=== PATIENT | male | born 1940 | race Asian ===

== ENCOUNTER → 2019-12-07 09:02 | Outpatient (CLI) | payer MEDICARE, OTHER, SELFPAY ==
--- NOTE | 2019-12-07 | DI.ECHO.S_ITS ---
[facility] [facility] +---------+ [facility] +---------+ : : [address] : : : : [place] : : : : [id number] : : : : Phone: [phone]+ Echocardiogram Report + + :Name: NITA BHAKTA Study Date: 12/07/2019 Height: 68 in : :[facility] Weight: 170 lb : : Gender: Male BSA: 1.9 m2 : :: 1940 Age: 79 yrs BP: 144/82 mmHg: :Reason For Study: ABN ECG : :Ordering Physician: Lawrence : :Isidro Garcia Performed By: Omar Harmon : :Referring: LAWRENCE GARCIA : + + Interpretation Summary The left ventricle is normal in size. The ejection fraction is estimated to be 65-70%. The right ventricle is normal in size and function. There is mild mitral regurgitation. Compared to the prior echo study, there has been an increase in the severity of mitral regurgitation. The IVC is of normal diameter and collapses greater than 50% with a sniff. This suggests a low right atrial pressure of 3 mm Hg. Procedure: A two-dimensional transthoracic echocardiogram with color flow and Doppler was performed. The study quality was technically adequate. Prior echo performed on 12/29/11. The patient was in normal sinus rhythm during the exam. Left Ventricle: The left ventricle is normal in size. There is mild concentric left ventricular hypertrophy. A false chord is noted (normal variant). There is no thrombus. Left ventricular systolic function is normal. The ejection fraction is estimated to be 65-70%. There are no focal wall motion abnormalities. Diastolic parameters suggest a relaxation abnormality of the left ventricle, consistent with probable normal filling pressures. Right Ventricle: The right ventricle is normal in size and function. Atria: The left atrium is moderately dilated. The left atrium has mildly increased in size since the prior echo exam. Right atrial size is normal. The interatrial septum is intact with no evidence for an atrial septal defect. Mitral Valve: The mitral valve leaflets appear mildly thickened, but open well. There is mild mitral annular calcification. There is systolic anterior motion of the chordal apparatus. Redundant elongated chordae are noted. There is mild mitral regurgitation. Compared to the prior echo study, there has been an increase in the severity of mitral regurgitation. Aortic Valve: The aortic valve is trileaflet. The aortic valve opens well. There is mild aortic valve sclerosis. There is no aortic valve stenosis. No aortic regurgitation is present. Tricuspid Valve: The tricuspid valve is normal in structure and function. There is trace tricuspid regurgitation. Pulmonary artery pressures cannot be estimated because of the lack of a measurable TR jet velocity. Pulmonic Valve: The pulmonic valve is not well seen, but is grossly normal. There is trace pulmonic regurgitation. Great Vessels: The aortic root is normal size. The dimensions of the ascending aorta are normal. The aortic arch could not be visualized. The pulmonary artery is normal size. The IVC is of normal diameter and collapses greater than 50% with a sniff. This suggests a low right atrial pressure of 3 mm Hg. Pericardium/ Pleura There is no pericardial effusion. There is no pleural effusion. MMode/2D Measurements & Calculations LVIDd: 5.0 cm LVOT diam: 2.1 cm LVIDs: 3.2 cm Ao root diam: 3.5 cm FS: 35.2 % Aortic Jxn: 3.0 cm EPSS: 0.53 cm asc Aorta Diam: 3.3 cm IVSd: 1.3 cm LVPWd: 1.2 cm LV negron. diameter/BSA (cm/m^2): 2.6 LV sys. diameter/BSA (cm/m^2): 1.7 LA A2 area: 23.5 cm2 RA long axis: 4.7 cm LA A4 area: 20.9 cm2 RA area: 12.0 cm2 LA length (vol): 5.1 cm RA vol: 26.2 ml LA vol: 81.0 ml RA : 13.7 ml/m2 LA vol index: 42.5 ml/m2 TAPSE: 2.7 cm Doppler Measurements & Calculations Ao V2 max: 129.9 cm/sec LVOT Max Adrián: 107.0 cm/sec Ao V2 mean: 82.4 cm/sec LV V1 max P.6 mmHg Ao max P.8 mmHg LV V1 VTI: 23.3 cm Ao mean P.3 mmHg LAUREN(I,D): 2.9 cm2 Ao V2 VTI: 26.5 cm LAUREN(V,D): 2.7 cm2 sev ratio: 0.88 LAUREN indexed to BSA (cm^2/m^2): 1.5 MV E max adrián: 66.2 cm/sec PA V2 max: 75.7 cm/sec MV A max adrián: 105.8 cm/sec PA V2 mean: 53.1 cm/sec MV E/A: 0.63 PA mean P.3 mmHg Med Peak E' Adrián: 4.4 cm/sec PA Accel Time: 0.06 sec E/E' med: 14.9 Lat Peak E' Adrián: 5.9 cm/sec E/E' lat: 11.3 E/e' average: 13.1 MV dec time: 0.19 sec SV(OT): 77.8 ml Reading Physician:04:52 PM
== END ==
PROVIDERS: PCP Family Medicine; Visit Provider Internal Medicine Cardiovascular Disease
DX: I08.0 Rheumatic disorders of both mitral and aortic valves (principal); R94.31 Abnormal electrocardiogram [ECG] [EKG]
CPT/HCPCS: 93306

== ENCOUNTER 2020-10-15 17:52 | Observation (INO) | payer MEDICARE, OTHER, SELFPAY ==
[2020-10-15] VITALS (10 sets, daily range): BP systolic 155–208; BP diastolic 78–95; PULSE 59–68; RESP 13–20; TEMP 36.6; O2SAT 97–100; BMI 25.8
--- NOTE | 2020-10-15 18:23 | ED.NEUROSD ---
HPI - Neuro Symptoms/Deficit General Chief Complaint: Neuro Symptoms/Deficit Stated Complaint: Left Sided Facial Numbness, Seen at [facility] Time Seen by Provider: 10/15/20 18:12 Source: patient Mode of arrival: Ambulatory Limitations: no limitations History of Present Illness HPI Narrative: Patient is a 80-year-old insulin-dependent diabetic male with a history of hypertension who was sent to the emergency department by his primary provider for evaluation of potential stroke. Patient states approximately 3 days ago while brushing his teeth he noticed that he was having some numbness/tingling in his right upper lip. He also stated that he was drooling out of the right side of his mouth. 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 His prior issue with Shaw's palsy was on the left side of his face and his symptoms 3 days ago or on his right. He then stated that today he started having problems closing his right eye. He went to his primary doctor who sent him to the emergency department. He denies any other associated symptoms. On Anticoagulants: No (asa 81mg) Related Data Home Medications Medication Instructions Recorded Confirmed allopurinol 100 mg PO DAILY 10/15/20 10/15/20 amlodipine 10 mg PO DAILY 10/15/20 10/15/20 aspirin 81 mg PO DAILY 10/15/20 10/15/20 atorvastatin 40 mg PO DAILY 10/15/20 10/15/20 carvedilol 25 mg PO BID 10/15/20 10/15/20 eplerenone 25 mg PO BID 10/15/20 10/15/20 fenofibrate 160 mg PO DAILY 10/15/20 10/15/20 insulin aspart U-100 [Novolog 10 unit SUBCUT AC 10/15/20 10/15/20 Flexpen U-100 Insulin] insulin glargine [Lantus Solostar 30 unit SUBCUT DAILY 10/15/20 10/15/20 U-100 Insulin] losartan 100 mg PO DAILY 10/15/20 10/15/20 Allergies Allergy/AdvReac Type Severity Reaction Status Date / Time No Known Drug Allergies Allergy Verified 10/15/20 17:59 Review of Systems Constitutional Constitutional: Denies body ache(s), Denies chills, Denies fatigue, Denies fever(s), Denies headache(s), Denies poor appetite and Denies weakness Eyes Eyes: Denies blurry vision, Denies change in vision, Denies diplopia, Denies dry eyes, Denies itchy eyes, Denies loss of vision and Denies eye pain ENT Ears, Nose, Mouth, and Throat: Denies abnormal hearing, Denies vertigo, Denies dizziness, Denies headache(s), Denies disequilibrium, Reports tinnitus (This is chronic for him), Denies sinus pain, Denies sinus pressure and Denies throat swelling Cardiovascular Cardiovascular: Denies chest pain, Denies rapid heart rate and Denies dyspnea on exertion Respiratory Respiratory: Denies cough and Denies dyspnea on exertion Gastrointestinal Gastrointestinal: Denies abdominal pain, Denies nausea and Denies vomiting Genitourinary Genitourinary: Denies dysuria Genitourinary: Denies dysuria Musculoskeletal Musculoskeletal: Denies abnormal gait, Denies arthralgias, Denies myalgias, Reports numbness and Reports tingling Integumentary/Breasts Skin/Breast: Denies lesions and Denies rash Neurologic Neurologic: Denies abnormal hearing, Denies abnormal speech, Denies abnormal gait, Denies behavioral changes, Denies vertigo, Denies dizziness, Denies headache(s), Denies loss of vision, Denies memory loss, Reports numbness, Denies seizure-like activity, Reports tingling, Denies disequilibrium and Denies weakness Psychiatric Psychiatric: Denies behavioral changes, Denies depression and Denies memory loss Endocrine Endocrine: Denies fatigue and Denies flushing Hematologic/Lymphatic Hematologic/Lymphatic: Denies easy bleeding and Denies easy bruising Allergic/Immunologic Allergic/Immunologic: Denies urticaria, Denies itchy eyes and Denies throat swelling Patient History Medical History Shaw's palsy Gout Hyperlipidemia Hypertension Kidney stone Type 2 diabetes mellitus Surgical History (Updated 10/15/20 @ 22:04 by CELIO Ferreira) History of appendectomy History of left heart catheterization Family History (Updated 10/15/20 @ 21:54 by CELIO Ferreira) Father Cerebral hemorrhage Mother Medical history unknown Sister Diabetes mellitus Social History household members: spouse Smoking Status: Former smoker alcohol intake: former Smoking Status: Former smoker Substance Use Type: does not use Exam Initial Vital Signs Initial Vital Signs: Vital Signs Pulse Rate 63 10/15/20 17:59 Respiratory Rate 16 10/15/20 17:59 Blood Pressure 177/81 H 10/15/20 17:59 Pulse Oximetry 100 10/15/20 17:59 Const General: cooperative, comfortable, well developed and well groomed Limitations: mental status not altered HENMT Head: normal to inspection and normocephalic Ears: TM's normal bilaterally Nose: external nose normal Face and sinus: face asymmetric Mouth: oral mucosae normal Teeth and gingiva: dentition normal Eyes Pupils: PERRL EOM: EOM intact bilaterally Resp Effort & Inspection: normal respiratory effort Auscultation: clear to auscultation bilaterally Cardio Rate: regular rate Rhythm: regular rhythm GI Inspection: non-distended Palpation: soft Skin Lesions: no lesions Rashes: no rashes Neuro General: patient alert, patient awake, patient oriented x3 and no meningeal signs Cognition: normal cognition Speech: speech normal Gait: normal gait Motor: muscle tone normal throughout Sensory Exam: no sensory deficits noted Coordination: [id number] test normal Extrem General: normal to inspection and capillary refill normal Psych Appearance: grossly normal and well kempt Scores GCS [place] coma scale eye opening: Spontaneous Luis Alberto coma scale verbal response: Orientated Luis Alberto coma scale motor response: Obey commands Luis Alberto coma scale total score: 15 NIH Stroke Scale Level of Conciousness: Alert, keenly responsive Ask month/age: Answers both questions correctly. Open/close eyes, close hand: Performs both tasks correctly Best gaze horizontal: Normal Visual nelson: No visual loss Facial palsy: Partial paralysis, total or near total paralysis of lower face Left arm drift: No drift for full 10 sec Right arm drift: No drift for full 10 sec Left leg drift: No drift for full 5 sec Right leg drift: No drift for full 5 sec Limb ataxia: Absent Sensory on face/arms/legs: Normal, no sensory loss Best language: No aphasia, normal Dysarthria: Normal Extinction or inattention: No abnormality Total NIH Stroke scale score: 2 Course Orders Ordered: ED Orders 10/15/20 18:23 Complete Blood Count AUTO DIFF Stat Comprehensive Metabolic Panel Stat Lipase Stat Partial Thromboplastin Time Stat Prothrombin Time INR Stat Troponin & CK Cardiac Panel Stat 10/15/20 18:24 CT head/brain wo con Stat 10/15/20 18:25 EKG-12 Lead Stat 10/15/20 20:22 COVID19 Stat Acetaminophen (Acetaminophen 325 Mg Tablet) 650 mg PO Q4HR PRN PRN Reason: Fever/Mild Pain (1-3) Al Hydrox/Mg Hydrox/Simethicone (Mag Hydrox/Alum/Simeth 30 Ml Udc) 30 ml PO Q6HR PRN PRN Reason: Dyspepsia Allopurinol (Allopurinol 100 Mg Tablet) 100 mg PO DAILY [facility] Amlodipine Besylate (Amlodipine 5 Mg Tablet) 10 mg PO DAILY [facility] Aspirin (Aspirin Ec 81 Mg Tablet) 81 mg PO DAILY [facility] Atorvastatin Calcium (Atorvastatin 20 Mg Tablet) 40 mg PO DAILY [facility] Bisacodyl (Bisacodyl 10 Mg Supp) 10 mg SD DAILY PRN PRN Reason: Constipation Calcium Carbonate (Calcium Carbonate 500 Mg Tab) 1,000 mg PO Q4HR PRN PRN Reason: Dyspepsia Carvedilol (Carvedilol 12.5 Mg Tablet) 25 mg PO BID [facility] Last Admin: 10/15/20 21:41 Dose: Not Given Documented by: Admin: 10/15/20 20:47 Dose: 25 mg Documented by: CARMELO Carvedilol (Carvedilol 12.5 Mg Tablet) 25 mg PO DAILY [facility] Clopidogrel Bisulfate (Clopidogrel 75 Mg Tablet) 75 mg PO DAILY [facility] Dextrose (Dextrose 50 % In Water 25 Gm/50 Ml Syringe) 25 gm IV PRN PRN; Protocol PRN Reason: Hypoglycemia Docusate Sodium (Docusate 100 Mg Capsule) 100 mg PO BID PRN PRN Reason: Constipation Enoxaparin Sodium (Enoxaparin 40 Mg/0.4 Ml Syringe) 40 mg SUBCUT DAILY [facility] Fenofibrate (Fenofibrate 160 Mg Tablet) 160 mg PO DAILY [facility] Hydralazine HCl (Hydralazine 20 Mg/Ml Vial) 10 mg IV Q6HR PRN PRN Reason: Hypertension Sodium Chloride (Normal Saline 0.9%) 1,000 mls @ 50 mls/hr IV CONT ALEA Insulin Aspart (Insulin Aspart 100 Unit/Ml Insuln Pen) 0 unit SUBCUT ACHS ALEA; Protocol Insulin Aspart (Insulin Aspart 100 Unit/Ml Insuln Pen) 10 unit SUBCUT AC ALEA Losartan Potassium (Losartan 50 Mg Tablet) 100 mg PO DAILY [facility] Naloxone HCl (Naloxone 0.4 Mg/Ml Vial) 0.2 mg IV Q2MIN PRN PRN Reason: Opiate Reversal Ondansetron HCl (Ondansetron 4 Mg/2 Ml Inj) 4 mg IV Q8HR PRN PRN Reason: Nausea And Vomiting Discontinued Medications Acetaminophen (Acetaminophen 325 Mg Tablet) 650 mg PO NOW ONE Stop: 10/15/20 20:44 Aspirin (Aspirin 81 Mg Chew Tab) 324 mg PO NOW ONE Stop: 10/15/20 19:46 Last Admin: 10/15/20 20:12 Dose: 324 mg Documented by: HERRERA Vital Signs Vital signs: Vital Signs - 8 hr 10/15/20 17:59 10/15/20 18:10 10/15/20 18:44 Pulse Rate 63 62 66 Respiratory Rate 16 17 13 Blood Pressure 177/81 H Pulse Oximetry 100 100 99 10/15/20 19:00 10/15/20 19:30 Pulse Rate 60 59 L Respiratory Rate 14 14 Blood Pressure 155/78 H 172/84 H Pulse Oximetry 97 98 MDM - Neuro Symptoms/Deficit Lab Data Attestation: I reviewed the patient's lab results. Result diagrams: 10/15/20 18:23 10/15/20 18:23 Labs: Lab Results 10/15/20 10/15/20 10/15/20 Range/Units 18:23 18:23 18:23 WBC 7.9 (4.5-11.0) X10^3/uL RBC 3.95 L (4.5-5.9) X10^6/uL Hgb 11.5 L (13.5-17.5) g/dL Hct 35.0 L (41-53) % MCV 88.7 (80-100) fL MCH 29.1 (26-34) PG MCHC 32.8 (30-36) % RDW 15.1 H (11.6-14.8) % Plt Count 267 (150-400) X10^3/uL Neut % (Auto) 67.9 (50-75) % Lymph % (Auto) 20.3 L (25-40) % Isabella % (Auto) 6.7 (3-14) % Eos % (Auto) 4.3 H (2-4) % Baso % (Auto) 0.8 (0-2) % Neut # (Auto) 5300 (8637-7037) /uL Lymph # (Auto) 1600 (5208-0419) /uL Isabella # (Auto) 500 (0-900) /uL Eos # (Auto) 300 (0-450) /uL Baso # (Auto) 100 (0-100) /uL PT 10.5 (10.1-12.7) SECONDS INR 0.9 (0.9-1.3) APTT 34 (26.4-36.2) SECONDS Sodium 137 (137-145) mmol/L Potassium 4.1 (3.4-5.1) mmol/L Chloride 105 (98-107) mmol/L Carbon Dioxide 27 (22-32) mmol/L BUN 24 H (9-20) mg/dL Creatinine 1.76 H (0.66-1.25) mg/dL Estimated GFR 37.6 L (>60) mL/min BUN/Creatinine Ratio 13.6 (6-22) Glucose 86 (80-110) mg/dL Hemoglobin A1c (4.0-6.0) % Calcium 9.2 (8.4-10.2) mg/dL Magnesium (1.6-2.3) mg/dL Total Bilirubin 0.6 (0.2-1.3) mg/dL AST 24 (17-59) IU/L ALT 23 (<50) IU/L Alkaline Phosphatase 86 (38-126) U/L Total Creatine Kinase 125 (55-170) U/L CK-MB (CK-2) 0.96 (<2.37) ng/mL CK-MB (CK-2) Rel Index 0.8 L (1.5-5.0) % Troponin I < 0.012 (0.01-0.034) ng/mL Total Protein 7.9 (6.3-8.2) g/dL Albumin 4.1 (3.5-5.0) g/dL Globulin 3.8 (1.7-4.1) g/dL Albumin/Globulin Ratio 1.1 (1.0-2.8) Lipase 81 (23-300) U/L 10/15/20 10/15/20 Range/Units 18:23 18:23 WBC (4.5-11.0) X10^3/uL RBC (4.5-5.9) X10^6/uL Hgb (13.5-17.5) g/dL Hct (41-53) % MCV (80-100) fL MCH (26-34) PG MCHC (30-36) % RDW (11.6-14.8) % Plt Count (150-400) X10^3/uL Neut % (Auto) (50-75) % Lymph % (Auto) (25-40) % Isabella % (Auto) (3-14) % Eos % (Auto) (2-4) % Baso % (Auto) (0-2) % Neut # (Auto) (9467-8598) /uL Lymph # (Auto) (0110-0047) /uL Isabella # (Auto) (0-900) /uL Eos # (Auto) (0-450) /uL Baso # (Auto) (0-100) /uL PT (10.1-12.7) SECONDS INR (0.9-1.3) APTT (26.4-36.2) SECONDS Sodium (137-145) mmol/L Potassium (3.4-5.1) mmol/L Chloride (98-107) mmol/L Carbon Dioxide (22-32) mmol/L BUN (9-20) mg/dL Creatinine (0.66-1.25) mg/dL Estimated GFR (>60) mL/min BUN/Creatinine Ratio (6-22) Glucose (80-110) mg/dL Hemoglobin A1c 6.8 H (4.0-6.0) % Calcium (8.4-10.2) mg/dL Magnesium 2.2 (1.6-2.3) mg/dL Total Bilirubin (0.2-1.3) mg/dL AST (17-59) IU/L ALT (<50) IU/L Alkaline Phosphatase (38-126) U/L Total Creatine Kinase (55-170) U/L CK-MB (CK-2) (<2.37) ng/mL CK-MB (CK-2) Rel Index (1.5-5.0) % Troponin I (0.01-0.034) ng/mL Total Protein (6.3-8.2) g/dL Albumin (3.5-5.0) g/dL Globulin (1.7-4.1) g/dL Albumin/Globulin Ratio (1.0-2.8) Lipase (23-300) U/L Imaging Data CT scan - head: Radiologist's Impression: [address] [id number] Scan ReportSigned Patient: Bob Martin EMR#: [id number]: 2Acct:[id number]/Sex: 80 / MDate of Service: 10/15/20Loc: EDAccession Number: [id number] Procedure: CT head/brain wo con Ordering Provider: Eloy Wilson D.O. PROCEDURE: CT HEAD/BRAIN WO CON COMPARISON: None. INDICATIONS: L sided facial droop FINDINGS: BRAIN: No hemorrhage, acute infarction, mass, or midline shift. Subcortical and periventricular white matter hypodensities are consistent with microvascular ischemic disease. BRAINSTEM: No hemorrhage, acute infarction, or mass. VENTRICLES: Ventricular size is normal. The subarachnoid cisterns and extra-axial CSF spaces are normal. EXTRAAXIAL: No extra-axial fluid or blood. ORBITS: The orbits and retrobulbar are soft tissues are normal. SOFT TISSUES: Normal. VASCULATURE: Intracranial vasculature has mild atherosclerotic calcifications. BONES: No fracture or focal osseous abnormality. SINUSES/MASTOIDS: The paranasal sinuses are well aerated. The mastoid air cells are well aerated. IMPRESSION: 1. No acute intracranial abnormality. 2. Microvascular ischemic disease. Dictated by: Reji Kelsey M.D. on 10/15/2020 at 18:54 Approved by: Reji Kelsey M.D. on 10/15/2020 at 18:56 ECG Data Attestation: I personally reviewed and interpreted this ECG as follows: Prior ECG tracings: not available for review Interpretation: Sinus rhythm Ventricular rate 61 Normal axis Normal QRS Normal QTC No ST T wave changes MDM Narrative Medical decision making narrative: Patient's last known normal was greater than 3 days ago. Not a candidate for tPA. His NIH score of 2. His symptoms seem to be isolated in the motor aspect of his right side of his face. He does have some findings that are consistent with Shaw's palsy however the probable cyst on the right side of his face spares his forehead. And only involves the lower 2 segments of the facial nerve. Given his presentation and his other medical history the concern is for an acute CVA. His head CT was unremarkable. He was given an aspirin here in the ER. I did discuss the case with CRISELDA Cao the night hospitalist who will admit for further evaluation and treatment. Discussed the admission with the patient. He expressed understanding and agreement. Discharge Plan Departure Patient Disposition: Admitted as Observation Clinical Impression: Cerebrovascular accident Admit Date/Time: 10/15/20 19:50 Admit Provider: Zion Cao
[2020-10-15 18:31] LABS: Add Manual Diff / Slide Review NO; Basophils Absolute Auto 100 /uL (0-100); Basophils Percent Auto 0.8 % (0-2); Eosinophils Absolute Auto 300 /uL (0-450); Eosinophils Percent Auto 4.3 % (2-4); Hemoglobin 11.5 g/dL (13.5-17.5); Lymphocytes Absolute Auto 1600 /uL (1100-4500); Lymphocytes Percent Auto 20.3 % (25-40); Mean Corpuscular HGB Conc 32.8 % (30-36); Mean Corpuscular Hemoglobin 29.1 PG (26-34); Mean Corpuscular Volume 88.7 fL (80-100); Monocytes Absolute Auto 500 /uL (0-900); Monocytes Percent Auto 6.7 % (3-14); Neutrophils Absolute Auto 5300 /uL (1500-7000); Neutrophils Percent Auto 67.9 % (50-75); Platelet Count 267 X10^3/uL (150-400); Red Blood Cell Count 3.95 X10^6/uL (4.5-5.9); Red Cell Distribution Width 15.1 % (11.6-14.8); White Blood Cell Count 7.9 X10^3/uL (4.5-11.0)
[2020-10-15 18:35] LABS: INR 0.9 (0.9-1.3); Prothrombin Time 10.5 SECONDS (10.1-12.7)
[2020-10-15 18:38] LABS: PTT Partial Thromboplastin Tim 34 SECONDS (26.4-36.2)
[2020-10-15 18:40] LABS: Alanine Aminotransferase 23 IU/L (<50); Albumin 4.1 g/dL (3.5-5.0); Albumin Globulin Ratio 1.1 (1.0-2.8); Alkaline Phosphatase 86 U/L (38-126); Aspartate Aminotransferase 24 IU/L (17-59); BUN Creatinine Ratio 13.6 (6-22); Bilirubin Total 0.6 mg/dL (0.2-1.3); Blood Urea Nitrogen 24 mg/dL (9-20); Calcium 9.2 mg/dL (8.4-10.2); Carbon Dioxide 27 mmol/L (22-32); Chloride 105 mmol/L (98-107); Creatine Kinase 125 U/L (55-170); Estimated Glomerular Filt Rate 37.6 mL/min (>60); Globulin 3.8 g/dL (1.7-4.1); Glucose 86 mg/dL (80-110); HEMOLYSIS < 15 (0-50); Lipase 81 U/L (23-300); Potassium 4.1 mmol/L (3.4-5.1); Sodium 137 mmol/L (137-145); Total Protein 7.9 g/dL (6.3-8.2)
[2020-10-15 18:52] LABS: Troponin I < 0.012 ng/mL (0.01-0.034)
[2020-10-15 18:55] LABS: CKMB % Relative Index 0.8 % (1.5-5.0); Creatine Kinase MB 0.96 ng/mL (<2.37)
[2020-10-15] MEDS: ASPIRIN 81 MG CHEW TAB 324 MG PO (20:12)
[2020-10-15 20:41] LABS: COVID19 -Nasal RAPID Negative (Negative)
[2020-10-15] MEDS: carvediloL 12.5 MG TABLET 25 MG PO (20:47)
--- NOTE | 2020-10-15 21:16 | DI.MRI.S_ITS ---
PROCEDURE: MR STROKE Pre- and post-contrast brain MRI, non-contrast brain MR angiogram, pre- and postcontrast neck MR angiogram INDICATIONS: CVA TECHNIQUE: Brain: Noncontrast axial T1 spin echo, axial T2 fast spin echo, sagittal and axial FLAIR, coronal T2 fast spin echo, axial gradient echo, axial diffusion and ADC through the brain. After the administration of contrast, axial 3D VIBE of the cranial vasculature and brain. Brain MRA: Non-contrast 3-D time of flight MR angiogram, with multiple xhjflql-reukssfpb-ymfnnhlltd (MIP) reformats performed. Neck MRA: Axial and sagittal TruFISP through the neck. Coronal dynamic MR angiogram during administration of contrast in the arterial and venous phases, with 3-dimenstional tlepxbd-frjyfytyy-sotocmybjc (MIP) reformats constructed from subtraction images. COMPARISON: [facility], CT, CT HEAD/BRAIN WO CON, 10/15/2020, 18:34. FINDINGS: Image quality: Excellent. BRAIN: CSF spaces: Ventricles are normal in size and shape. Basal cisterns are patent. No extra-axial fluid collections. Brain: No intracranial bleeds or mass effects. Sims-white matter interface is normal. Diffusion weighted images show no acute ischemic insults. Brainstem appears normal. Brain parenchymal volume loss is seen. Chronic small vessel ischemic changes are seen. Normal intravascular flow voids are present. No abnormal intracranial enhancement. Skull and face: Calvarial marrow signal is normal. Orbits appear normal. Note is made of bilateral lens replacements. Sinuses: There is a mucous retention cyst seen within the right maxillary sinus. Sinuses and mastoids are otherwise relatively clear. BRAIN MR ANGIOGRAM: Anterior circulation: Intracranial internal carotid arteries are normal in size and enhancement. The flow within the paired anterior cerebral arteries is normal and symmetric. The flow within the middle cerebral arteries is normal and symmetric. The anterior communicating artery is seen. No stenoses, occlusions, or aneurysms. Posterior circulation: The visualized portions of the vertebral arteries demonstrate normal caliber, and join to form a normal appearing basilar artery. Bilateral type origins the posterior cerebral arteries can be seen. The flow within the posterior cerebral arteries is normal and symmetric. No significant stenosis is seen. No aneurysms or occlusions. NECK MR ANGIOGRAM: Carotids: Great vessels demonstrate a conventional anatomy as they arise from the aortic arch. The origins of the common carotid arteries appear patent. The calibers and courses of both common carotid arteries are normal. The bifurcation regions appear normal bilaterally. The internal carotid arteries demonstrate normal course and caliber. Posterior circulation: The origins of the vertebral arteries appear patent. More superior portions of both vertebral arteries demonstrate normal course and caliber, and join to form a normal appearing basilar artery. Miscellaneous: Subclavian arteries appear patent. Pre-contrast images through the neck show no soft tissue abnormalities. IMPRESSION: BRAIN MRI: No findings of acute or subacute infarction can be seen. Note is made of age-appropriate brain parenchymal volume loss and chronic small vessel ischemic changes. No masses or abnormal enhancement can be seen. BRAIN MR ANGIOGRAM: No significant intracranial arterial abnormality is seen. NECK MR ANGIOGRAM: Within the arteries of the neck, no hemodynamically significant stenosis can be seen. Dictated by: Oj Dunbar M.D. on 10/16/2020 at 8:10 Approved by: Oj Dunbar M.D. on 10/16/2020 at 8:15
--- NOTE | 2020-10-15 21:37 | PC.ADMIT ---
[address] Admission Note: The patient,Bob Martin,80 y/o, was given written information regarding hospital policies, unit procedures and contact persons. Patient's smoking status: Former smoker. Vital Signs - 8 hr 10/15/20 17:59 10/15/20 18:10 10/15/20 18:44 Pulse Rate 63 62 66 Respiratory Rate 16 17 13 Blood Pressure 177/81 H Pulse Oximetry 100 100 99 10/15/20 19:00 10/15/20 19:30 10/15/20 20:00 Pulse Rate 60 59 L 65 Respiratory Rate 14 14 18 Blood Pressure 155/78 H 172/84 H 181/95 H Pulse Oximetry 97 98 97 10/15/20 20:30 10/15/20 20:32 10/15/20 20:47 Pulse Rate 60 61 65 Respiratory Rate 20 20 Blood Pressure 198/91 H 208/88 H 208/88 H Pulse Oximetry 99 100 Patient up from ED via wheelchair. Patient was able to get out of the wheelchair and ambulate to bed, gait was steady. Patient denies any discomfort. Patient is A&O, calm and cooperative.
--- NOTE | 2020-10-15 21:37 | PM.HP.1 ---
History of Present Illness History of Present Illness Date Patient Seen: 10/15/20 Time Patient Seen: 21:00 Chief complaint: Left Sided Facial Numbness, Seen at [facility] Narrative: Mr. Bob Martin this is a 72-year-old [place]i male with a past medical history significant for hypertension, type 2 diabetes on insulin, hyperlipidemia, Shaw's palsy and gout who presents to the ER with facial numbness. The patient's the he developed left facial numbness and droop on Thursday that he notices wound brushing his teeth and water poor out. Patient thought it was a return his Shaw's palsy did not immediately seek medical attention. Today he developed left upper lid numbness and drooping prompting him to present to [facility] primary care clinic in [place] where he was seen and assessed and referred to [facility] ER. The patient is followed for his hypertension at [facility] and was prescribed phenoxybenzamine which he has not yet picked up. The patient denies associated symptoms of headache, visual changes, nausea vomiting extremity weakness, ataxia, numbness or tingling. The patient denies recent illness, flu or cold symptoms. He has had no fevers or chills and no known COVID-19 exposures. He endorses mild dizziness since arriving in the ER at which time his blood pressure is 208/88. He denies nasal congestion or sore throat and has no difficulty chewing or swallowing. He denies complaints of chest pain or palpitations though he will describe some exertional heaviness in his chest that radiates to his left shoulder and resolves with rest. He further describes exertional dyspnea reporting shortness of breath bringing groceries a into the house from his car. Denies epigastric or abdominal pain and has no nausea vomiting, diarrhea or constipation. Reports moving his bowels on a daily basis. He denies urinary symptoms has no difficulty starting or stopping his stream and nocturia 1 time nightly. Upon arrival to the ER patient has heart rate of 63, blood pressure 177/81, respirations 16 and saturating 100% on room air. A CT of the head is obtained which shows no acute intracranial abnormalities and microvascular ischemic disease. Twelve lead EKG finds sinus rhythm at a rate of 60 without ectopy, ST or T-wave changes and no infarct. On laboratory analysis he has white count of 7.9 hemoglobin of 11.5, hematocrit 35.0 and platelets of 267. He has a PT of 10.5, INR 0.9 and PTT of 34. His sodium is 137 with potassium of 4.1. His BUN is 24 with creatinine 1.76. His nonfasting glucose is 86. His liver functions are all within normal limits and has an albumin level of 4.1. He has a total CK of 125 with a CK-MB of 0.96 for an index of 0.8%. His troponin is negative at less than 0.012. The patient received aspirin 324 mg chewed in the ER as well as his evening dose of Coreg 25 mg. Patient is admitted to the hospitalist service for CVA. Patient History Medical History (Updated 10/15/20 @ 22:04 by CELIO Ferreira) Shaw's palsy Gout Hyperlipidemia Hypertension Kidney stone Type 2 diabetes mellitus Surgical History (Updated 10/15/20 @ 22:04 by CELIO Ferreira) History of appendectomy History of left heart catheterization Family & Social History Family History (Updated 10/15/20 @ 21:54 by CELIO Ferreira) Father Cerebral hemorrhage Mother Medical history unknown Sister Diabetes mellitus Safety & Behavioral: Feels Safe in Current Yes Environment Been Physically Hurt or No Threatened By a Person Tobacco & Substance use: Smoking Status Former smoker Substance Use Type does not use Meds Home Medications and Allergies Home Medications Medication Instructions Recorded Confirmed Type allopurinol 100 mg PO DAILY 10/15/20 10/15/20 History amlodipine 10 mg PO DAILY 10/15/20 10/15/20 History aspirin 81 mg PO DAILY 10/15/20 10/15/20 History atorvastatin 40 mg PO DAILY 10/15/20 10/15/20 History carvedilol 25 mg PO BID 10/15/20 10/15/20 History eplerenone 25 mg PO BID 10/15/20 10/15/20 History fenofibrate 160 mg PO DAILY 10/15/20 10/15/20 History insulin aspart U-100 [Novolog 10 unit SUBCUT AC 10/15/20 10/15/20 History Flexpen U-100 Insulin] insulin glargine [Lantus Solostar 30 unit SUBCUT DAILY 10/15/20 10/15/20 History U-100 Insulin] losartan 100 mg PO DAILY 10/15/20 10/15/20 History Allergies Allergy/AdvReac Type Severity Reaction Status Date / Time No Known Drug Allergies Allergy Verified 10/15/20 17:59 Review of Systems Review of Systems ROS: Yes All systems reviewed with the patient and are negative except as otherwise documented Exam Vital Signs (past 8 hours): - 10/15/20 17:59 10/15/20 18:10 10/15/20 18:44 Pulse Rate 63 62 66 Respiratory Rate 16 17 13 Blood Pressure 177/81 H Pulse Oximetry 100 100 99 10/15/20 19:00 10/15/20 19:30 10/15/20 20:00 Pulse Rate 60 59 L 65 Respiratory Rate 14 14 18 Blood Pressure 155/78 H 172/84 H 181/95 H Pulse Oximetry 97 98 97 10/15/20 20:30 10/15/20 20:32 10/15/20 20:47 Pulse Rate 60 61 65 Respiratory Rate 20 20 Blood Pressure 198/91 H 208/88 H 208/88 H Pulse Oximetry 99 100 Oxygen Delivery Method Room Air Narrative Exam Narrative: GENERAL APPEARANCE: well developed, well nourished, in no acute distress. HEENT: Left facial droop, left lid lag, forehead movement preserved, PERRLA, conjunctiva clear school are anicteric, EOMs intact without nystagmus or diplopia, no sinus tenderness to percussion, no rhinorrhea, tongue and uvula appear midline, mucous membranes are moist and pink. NECK/THYROID: neck supple, no JVD, no carotid bruit, no thyromegaly, trachea midline. LYMPH NODES: no cervical or supraclavicular lymphadenopathy. SKIN: [place], warm and dry, no visible lesions, rashes, ulcerations or petechiae. HEART: regular rate and rhythm, S1-S2, no murmur, no rubs or gallops, brisk capillary refill, no edema LUNGS: clear to auscultation bilaterally, no coarseness crackles or wheezing, no cough present CHEST: Symmetrical movement, no accessory muscle use, good tidal volume. ABDOMEN: Soft, protuberant, no abdominal tenderness, no guarding or peritoneal signs, no organomegaly, no flank or suprapubic tenderness, active bowel tones. BACK: Normal curvature, nontender to palpation. EXTREMITIES: BUE and BLE strength is 5/5 and symmetrical without drift, no deformities or joint effusions. NEUROLOGIC: AAO x4, NIH score of 3, left facial droop, left of ptosis, sensation is tested without numbness, no ataxia, slight aphasia, no dysphagia, hearing grossly normal to speech. PSYCH: Good judgment, linear thought process, cooperative, appropriate with stable behavior Objective Labs Result Diagrams: 10/15/20 18:23 10/15/20 18:23 Labs: Laboratory Results - last 24 hr 10/15/20 10/15/20 10/15/20 18:23 18:23 18:23 WBC 7.9 RBC 3.95 L Hgb 11.5 L Hct 35.0 L MCV 88.7 MCH 29.1 MCHC 32.8 RDW 15.1 H Plt Count 267 Neut % (Auto) 67.9 Lymph % (Auto) 20.3 L [place] % (Auto) 6.7 Eos % (Auto) 4.3 H Baso % (Auto) 0.8 Neut # (Auto) 5300 Lymph # (Auto) 1600 [place] # (Auto) 500 Eos # (Auto) 300 Baso # (Auto) 100 PT 10.5 INR 0.9 APTT 34 Sodium 137 Potassium 4.1 Chloride 105 Carbon Dioxide 27 BUN 24 H Creatinine 1.76 H Estimated GFR 37.6 L BUN/Creatinine Ratio 13.6 Glucose 86 Calcium 9.2 Total Bilirubin 0.6 AST 24 ALT 23 Alkaline Phosphatase 86 Total Creatine Kinase 125 CK-MB (CK-2) 0.96 CK-MB (CK-2) Rel Index 0.8 L Troponin I < 0.012 Total Protein 7.9 Albumin 4.1 Globulin 3.8 Albumin/Globulin Ratio 1.1 Lipase 81 COVID-19 PCR 10/15/20 20:22 WBC RBC Hgb Hct MCV MCH MCHC RDW Plt Count Neut % (Auto) Lymph % (Auto) [place] % (Auto) Eos % (Auto) Baso % (Auto) Neut # (Auto) Lymph # (Auto) [place] # (Auto) Eos # (Auto) Baso # (Auto) PT INR APTT Sodium Potassium Chloride Carbon Dioxide BUN Creatinine Estimated GFR BUN/Creatinine Ratio Glucose Calcium Total Bilirubin AST ALT Alkaline Phosphatase Total Creatine Kinase CK-MB (CK-2) CK-MB (CK-2) Rel Index Troponin I Total Protein Albumin Globulin Albumin/Globulin Ratio Lipase COVID-19 PCR Negative Assessment & Plan Assessment & Plan narrative: This is a 72-year-old male patient with a history of hypertension, hyperlipidemia, diabetes, Shaw's palsy in count who experienced an onset of facial drooping if report of left facial numbness 3 days ago thought to be recurrence of his previous Shaw's palsy. The patient developed eyelid numbness and droop today prompting him to present to the clinic who referred him to the emergency department for further evaluation. 1. 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 -CT scan finds no acute intracranial abnormality and notes microvascular ischemic disease. -this is believed to be central lesion opposed to recurrent Shaw's palsy related to preserved upper facial function. Ordered serial neurologic evaluations. -allow permissive hypertension, patient reports typical blood pressure is 150s over 70s, at time of evaluation he was 208/88 and complaining of mild dizziness. Will continue his routine antihypertensive medications as below -ordered MR stroke in the morning. -ordered echocardiogram in the morning. -will obtain lipid panel, TSH and hemoglobin A1c. -requested PT, OT and speech therapy to consult, evaluate and treat. 2. Essential hypertension, uncontrolled, chronic, present on admission, active. -patient has blood pressure of 208/88 at time evaluation complaining mild headache. Patient is given his evening dose of Coreg 25 mg. -ordered hydralazine 10 mg IV every 6 hours as needed for sustained systolic blood pressure greater than 220 or diastolic pressure greater than 110. -will continue home antihypertensives including amlodipine 10 mg, losartan 100 mg daily and carvedilol 20 mg twice daily. -operation recently prescribed phenooxybenzmine but has not yet started the medication. -will closely follow blood pressures allowing permissive hypertension. 3. Elevated creatinine, unknown chronicity, present on admission, active. -patient with an elevated BUN at 24 and a creatinine 1.76 with no available labs for comparison. Unknown if chronic hypertensive kidney disease, diabetic nephropathy or acute kidney injury. -no known kidney disease and on diuretic therapy with eplerenone 25 mg BID which will be held related to concerns of over diuresis. -also concern related to high-dose ARB with losartan 100 mg daily with impaired renal clearance. -ordered normal saline 50 cc an hour. -will recheck chemistries in the morning. 4. Diabetes type 2, controlled with long-term use of insulin, chronic, stable. -patient's glucose of 86 upon admission to the emergency department. -patient takes Lantus 30 units subcu each morning and administers NovoLog 10 units with meals. -ordered fingerstick blood sugars a.c. and hs with above Lantus and NovoLog dosing with addition of correctional insulin low-dose scale. -will obtain hemoglobin A1c. 5. Dyslipidemia, chronic, stable. -will continue patient's home regimen of atorvastatin 40 mg and fenofibrate 160 mg daily. -will obtain a lipid panel to assess adequacy of treatment. 6. Gout, chronic, stable. -no current complaints of pain or problems. -continue allopurinol 100 mg daily. VTE prophylaxis: Enoxaparin IV fluid: Normal saline 50 cc/hour Diet: Small consistent carbohydrate, heart healthy Code status: Full code, patient's is a surrogate decision maker. The patient is admitted to the severity of his symptoms and necessity for further evaluation and monitoring. The patient is admitted as observation status with expected length of stay to be less than 2 midnights. COVID-19 COVID-19 status: Negative Result date/Date tested (Pos, Neg/Pending): 10/15/20 Scores GCS [place] coma scale eye opening: Spontaneous [place] coma scale verbal response: Orientated [place] coma scale motor response: Obey commands Luis Alberto coma scale total score: 15 NIHSS Level of Conciousness: Alert, keenly responsive Ask month/age: Answers both questions correctly. Open/close eyes, close hand: Performs both tasks correctly Best gaze horizontal: Normal Visual nelson: No visual loss Facial palsy: Partial paralysis, total or near total paralysis of lower face Left arm drift: No drift for full 10 sec Right arm drift: No drift for full 10 sec Left leg drift: No drift for full 5 sec Right leg drift: No drift for full 5 sec Limb ataxia: Absent Sensory on face/arms/legs: Normal, no sensory loss Best language: Mild to moderate, slurs some words Dysarthria: Normal Extinction or inattention: No abnormality Total NIH Stroke scale score: 3
[2020-10-15 21:45] LABS: Magnesium 2.2 mg/dL (1.6-2.3)
[2020-10-15 22:22] LABS: Hemoglobin A1C% w Est Avg Glu 6.8 % (4.0-6.0)
[2020-10-16 00:15] VITALS: BP 148/84; PULSE 66; RESP 14; TEMP 36.7; O2SAT 98
[2020-10-16] MEDS: SODIUM CHLORIDE 0.9% 1,000 ML 50 ML IV (00:18)
[2020-10-16 04:00] VITALS: BP 144/69; PULSE 73; RESP 18; TEMP 36.9; O2SAT 97
[2020-10-16 06:00] VITALS: BP 142/71; PULSE 73; RESP 18; O2SAT 97
[2020-10-16 06:46] LABS: BUN Creatinine Ratio 16.7 (6-22); Blood Urea Nitrogen 27 mg/dL (9-20); Calcium 8.8 mg/dL (8.4-10.2); Carbon Dioxide 28 mmol/L (22-32); Chloride 108 mmol/L (98-107); Cholesterol 196 mg/dL (140-199); Estimated Glomerular Filt Rate 41.4 mL/min (>60); Glucose 64 mg/dL (80-110); HDL Cholesterol 31 mg/dL (40-60); HEMOLYSIS 15 (0-50); Potassium 3.7 mmol/L (3.4-5.1); Sodium 138 mmol/L (137-145); Triglycerides 451 mg/dL (35-150)
[2020-10-16 07:17] LABS: Thyroid Stimulating Hormone 3.75 uIU/mL (0.47-4.68)
[2020-10-16 07:27] VITALS: O2SAT 92
--- NOTE | 2020-10-16 07:46 | PC.NURSE ---
Day shift: Pt off unit for MRI at approx 0730.
[2020-10-16 08:00] VITALS: BP 144/74; PULSE 62; RESP 16; TEMP 36.2; O2SAT 98
--- NOTE | 2020-10-16 08:24 | PC.NURSE ---
Day shift: Pt back on AC at approx 0825 from MRI.
--- NOTE | 2020-10-16 09:29 | PM.DS.1 ---
History of Present Illness History of Present Illness Date Patient Seen: 10/16/20 Time Patient Seen: 09:29 Chief complaint: Left Sided Facial Numbness, Seen at [facility] Narrative: Mr. Bob Martin this is a 72-year-old [place] male with a past medical history significant for hypertension, type 2 diabetes on insulin, hyperlipidemia, Shaw's palsy and gout who presents to the ER with facial numbness. The patient's the he developed left facial numbness and droop on Thursday that he notices wound brushing his teeth and water poor out. Patient thought it was a return his Shaw's palsy did not immediately seek medical attention. Today he developed left upper lid numbness and drooping prompting him to present to [facility] primary care clinic in [place] where he was seen and assessed and referred to [facility] ER. The patient is followed for his hypertension at [facility] and was prescribed phenoxybenzamine which he has not yet picked up. The patient denies associated symptoms of headache, visual changes, nausea vomiting extremity weakness, ataxia, numbness or tingling. The patient denies recent illness, flu or cold symptoms. He has had no fevers or chills and no known COVID-19 exposures. He endorses mild dizziness since arriving in the ER at which time his blood pressure is 208/88. He denies nasal congestion or sore throat and has no difficulty chewing or swallowing. He denies complaints of chest pain or palpitations though he will describe some exertional heaviness in his chest that radiates to his left shoulder and resolves with rest. He further describes exertional dyspnea reporting shortness of breath bringing groceries a into the house from his car. Denies epigastric or abdominal pain and has no nausea vomiting, diarrhea or constipation. Reports moving his bowels on a daily basis. He denies urinary symptoms has no difficulty starting or stopping his stream and nocturia 1 time nightly. Upon arrival to the ER patient has heart rate of 63, blood pressure 177/81, respirations 16 and saturating 100% on room air. A CT of the head is obtained which shows no acute intracranial abnormalities and microvascular ischemic disease. Twelve lead EKG finds sinus rhythm at a rate of 60 without ectopy, ST or T-wave changes and no infarct. On laboratory analysis he has white count of 7.9 hemoglobin of 11.5, hematocrit 35.0 and platelets of 267. He has a PT of 10.5, INR 0.9 and PTT of 34. His sodium is 137 with potassium of 4.1. His BUN is 24 with creatinine 1.76. His nonfasting glucose is 86. His liver functions are all within normal limits and has an albumin level of 4.1. He has a total CK of 125 with a CK-MB of 0.96 for an index of 0.8%. His troponin is negative at less than 0.012. The patient received aspirin 324 mg chewed in the ER as well as his evening dose of Coreg 25 mg. Patient is admitted to the hospitalis Discharge Providers Provider Date of admission: 10/15/20 19:50 Discharge Date: 10/16/20 Primary care physician: Maverick No MD Consults: 10/15/20 21:16 Consult to Discharge Planning Routine Comment: Consult to Occupational Therapy Evaluate & Treat Comment: Physician Instructions: Evaluate and treat Consult to Physical Therapy Evaluate & Treat Comment: Physician Instructions: Evaluate and Treat Consult to Speech Therapy Evaluate & Treat Comment: Physician Instructions: Evaluate and treat 10/15/20 22:11 Consult to Speech Therapy Evaluate & Treat Comment: CVA with left facial droop, left ptosis Physician Instructions: Evaluate and treat Discharge provider: Zion Mosqueda DO Summary Hospital Course Discharge Diagnosis: 1.Shaw's Palsy, acute, present on admission, active 2. Essential hypertension, uncontrolled, chronic, present on admission, active. 3. Elevated creatinine, unknown chronicity, present on admission, active. 4. Diabetes type 2, controlled with long-term use of insulin, chronic, stable. 5. Dyslipidemia, chronic, stable. 6. Gout, chronic, stable. Hospital Course: This is a 80-year-old male with a past medical history of hypertension, type 2 diabetes, hyperlipidemia and hypertriglyceridemia, and gout who presented with onset of facial paralysis on the left. He reported to the 1st 2 providers that he had numbness but denied this to me, and he had no evidence of numbness on exam. Exam findings are consistent with a Shaw's palsy, for which the patient was prescribed a steroid taper. He did undergo an MRI which did not reveal any acute infarcts. The patient is already taking aspirin daily and Lipitor. Patient can follow-up with his primary care provider if symptoms do not improve, and if it starts affecting his eye he was advised to seek senior vice president & general counsel with his primary care provider or an machine tester for eye drops. Recommend outpatient PT and speech therapies. Patient had an elevated Cr on admission which did improve intially, unknown baseline and currently does not meet the definition of [place]. A1c controlled at 6.8%. No medication changes recommended other than prescribed steroid taper. Exam Vital Signs (past 8 hours): - 10/16/20 04:00 10/16/20 06:00 10/16/20 07:27 Temperature 98.4 F Pulse Rate 73 73 Respiratory Rate 18 18 Blood Pressure 144/69 H 142/71 H Pulse Oximetry 97 97 92 Oxygen Delivery Method Room Air Oxygen Flow Rate 0 Narrative Exam Narrative: GENERAL APPEARANCE: Well developed, well nourished, in no acute distress. SKIN: Inspection of the skin reveals no rashes, ulcerations or petechiae. HEENT: Normocephalic atraumatic, extraocular muscles are intact, oropharynx is clear and mucous membranes are moist, neck is supple without adenopathy NECK: Supple and symmetric. There was no thyroid enlargement, and no tenderness, or masses were felt. CHEST: Normal AP diameter and normal contour without any kyphoscoliosis. LUNGS: Auscultation of the lungs revealed no wheezes, rhonchi, or rales. CARDIOVASCULAR: There was a regular rate and rhythm without any murmurs, gallops, rubs. Peripheral pulses were 2+ and symmetric. ABDOMEN: Soft and nontender with normal bowel sounds. No ascites was noted. MUSCULOSKELETAL: There was no tenderness or effusions noted. Muscle strength and tone were normal. EXTREMITIES: No cyanosis, clubbing or edema. NEUROLOGIC: Alert and oriented x 3. Normal affect. Gait was normal. Strength is +5/5 in the Upper Extremities and Lower Extremities Bilaterally. Sensation to touch was normal. Left facial paralysis, not affecting the eye, able to blink. No deficits to sensation to light touch to the face bilaterally. Objective Labs Result Diagrams: 10/15/20 18:23 10/16/20 06:03 Labs: Laboratory Results - last 24 hr 10/15/20 10/15/20 10/15/20 18:23 18:23 18:23 WBC 7.9 RBC 3.95 L Hgb 11.5 L Hct 35.0 L MCV 88.7 MCH 29.1 MCHC 32.8 RDW 15.1 H Plt Count 267 Neut % (Auto) 67.9 Lymph % (Auto) 20.3 L [place] % (Auto) 6.7 Eos % (Auto) 4.3 H Baso % (Auto) 0.8 Neut # (Auto) 5300 Lymph # (Auto) 1600 [place] # (Auto) 500 Eos # (Auto) 300 Baso # (Auto) 100 PT 10.5 INR 0.9 APTT 34 Sodium 137 Potassium 4.1 Chloride 105 Carbon Dioxide 27 BUN 24 H Creatinine 1.76 H Estimated GFR 37.6 L BUN/Creatinine Ratio 13.6 Glucose 86 Hemoglobin A1c Calcium 9.2 Magnesium Total Bilirubin 0.6 AST 24 ALT 23 Alkaline Phosphatase 86 Total Creatine Kinase 125 CK-MB (CK-2) 0.96 CK-MB (CK-2) Rel Index 0.8 L Troponin I < 0.012 Total Protein 7.9 Albumin 4.1 Globulin 3.8 Albumin/Globulin Ratio 1.1 Triglycerides Cholesterol LDL Cholesterol, Calc HDL Cholesterol Lipase 81 TSH COVID-19 PCR 10/15/20 10/15/20 10/15/20 18:23 18:23 20:22 WBC RBC Hgb Hct MCV MCH MCHC RDW Plt Count Neut % (Auto) Lymph % (Auto) [place] % (Auto) Eos % (Auto) Baso % (Auto) Neut # (Auto) Lymph # (Auto) [place] # (Auto) Eos # (Auto) Baso # (Auto) PT INR APTT Sodium Potassium Chloride Carbon Dioxide BUN Creatinine Estimated GFR BUN/Creatinine Ratio Glucose Hemoglobin A1c 6.8 H Calcium Magnesium 2.2 Total Bilirubin AST ALT Alkaline Phosphatase Total Creatine Kinase CK-MB (CK-2) CK-MB (CK-2) Rel Index Troponin I Total Protein Albumin Globulin Albumin/Globulin Ratio Triglycerides Cholesterol LDL Cholesterol, Calc HDL Cholesterol Lipase TSH COVID-19 PCR Negative 10/16/20 10/16/20 06:03 06:03 WBC RBC Hgb Hct MCV MCH MCHC RDW Plt Count Neut % (Auto) Lymph % (Auto) [place] % (Auto) Eos % (Auto) Baso % (Auto) Neut # (Auto) Lymph # (Auto) [place] # (Auto) Eos # (Auto) Baso # (Auto) PT INR APTT Sodium 138 Potassium 3.7 Chloride 108 H Carbon Dioxide 28 BUN 27 H Creatinine 1.62 H Estimated GFR 41.4 L BUN/Creatinine Ratio 16.7 Glucose 64 L Hemoglobin A1c Calcium 8.8 Magnesium Total Bilirubin AST ALT Alkaline Phosphatase Total Creatine Kinase CK-MB (CK-2) CK-MB (CK-2) Rel Index Troponin I Total Protein Albumin Globulin Albumin/Globulin Ratio Triglycerides 451 H Cholesterol 196 LDL Cholesterol, Calc TNP HDL Cholesterol 31 L Lipase TSH 3.75 COVID-19 PCR Discharge Plan Discharge Plan Patient Disposition: Home Provider Discharge Comment: You were admitted to the hospital with a facial droop, MRI negative for a stroke. 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 Please follow up with your PMD, your blood sugars may be elevated while you're on steroids. Discharge orders & Medications Prescriptions: New prednisone 10 mg tablet See Rx Instructions .ROUTE .COMPLEX Qty: 27 RF: 0 Continued atorvastatin 40 mg tablet 40 mg PO DAILY RF: 0 allopurinol 100 mg tablet 100 mg PO DAILY RF: 0 aspirin 81 mg tablet,delayed release (DR/EC) 81 mg PO DAILY RF: 0 amlodipine 10 mg tablet 10 mg PO DAILY RF: 0 losartan 50 mg tablet 100 mg PO DAILY RF: 0 carvedilol 25 mg tablet 25 mg PO BID RF: 0 eplerenone 25 mg tablet 25 mg PO BID RF: 0 insulin aspart U-100 [Novolog Flexpen U-100 Insulin] 100 unit/mL (3 mL) insulin pen 10 unit SUBCUT AC RF: 0 fenofibrate 160 mg tablet 160 mg PO DAILY RF: 0 Lantus Solostar U-100 Insulin 100 unit/mL (3 mL) insulin pen 30 unit SUBCUT DAILY RF: 0 Follow up/Referrals: Maverick No MD [Primary Care Provider] - 10/30/20 1:00 pm (appt:10/30 @ 1:00 please arrive 15 minutes prior to your scheduled appointment this will not be with dr no but with one of the other md's in the office records have been faxed.) Diet/Activity/Treatments Diet: Diet as Tolerated and Carb-consistent/Diabetic Activity: As tolerated Visit Report/Discharge Packet Instructions: DI for [place] Palsy, Shaw Palsy, How to Prevent Falls, Prednisone Discharge Data Primary Care Provider: Maverick No Attending Provider: Zion Cao VTE Deep Vein Thrombosis/Pulmonary Embolism Present on Admission: No
[2020-10-16] MEDS: ENOXAPARIN 40 MG/0.4 ML SYRINGE SUBCUT (09:52)
[2020-10-16] MEDS: CLOPIDOGREL 75 MG TABLET PO (09:52)
[2020-10-16] MEDS: ASPIRIN EC 81 MG TABLET PO (09:52)
[2020-10-16] MEDS: carvediloL 12.5 MG TABLET 25 MG PO (09:52)
[2020-10-16] MEDS: predniSONE 20 MG TABLET 60 MG PO (09:52)
[2020-10-16] MEDS: AMLODIPINE 5 MG TABLET 10 MG PO (09:52)
[2020-10-16] MEDS: LOSARTAN 50 MG TABLET 100 MG PO (09:52)
[2020-10-16] MEDS: allopurinoL 100 MG TABLET PO (09:53)
--- NOTE | 2020-10-16 10:09 | PT.IIE ---
Surgical History (Last Updated 10/15/20 @ 22:04 by CELIO Ferreira) History of appendectomy History of left heart catheterization Medical History (Last Reviewed 10/15/20 @ 22:47 by Eloy Wilson DO) Fam's palsy Gout Hyperlipidemia Hypertension Kidney stone Type 2 diabetes mellitus Physical Therapy Inpatient Evaluation/Re-Eval M1 PT/OT-IP Prior Functional Status Start: 10/16/20 11:19 Freq: NEEDED Status: Active Protocol: Document 10/16/20 10:09 AB (Rec: 10/16/20 11:31 AB [id number]) Medical Review Prior Functional Status Medical History Reviewed Yes Communication able to make needs known Mobility and Gait pt stated that he is independent with all mobilities and ambulation without AD Social History Household Members spouse Living Arrangements House Number of Floors (Floors) 3 or More Floors Number of Stairs To Enter/Railing? 6 steps with L rail ascending to enter the house 6 steps with bilateral rails to get to bedroom level 6 steps with L rail descending to go down to the den Home Environment Standard Height Toilet,Walk in Shower M2 PT-IP Current Condition Start: 10/16/20 11:19 Freq: NEEDED Status: Active Protocol: Document 10/16/20 10:09 AB (Rec: 10/16/20 11:31 AB [email or web address]) Physical Therapy Current Condition Current Condition Evaluation Date 10/16/20 Treatment Diagnosis L facial numbness; difficulty in walking Onset Date 10/15/20 M3 PT-IP Subjective Start: 10/16/20 11:19 Freq: NEEDED Status: Active Protocol: Document 10/16/20 10:09 AB (Rec: 10/16/20 11:31 AB [email or web address]) Subjective Physical Therapy Visit Type Type Initial Evaluation Visit Start Time 10:09 Visit Stop Time 10:39 Total Visit Minutes 30 Number of SURVEY DATA TECHNICIAN Visits 0 Physical Therapy Visit Comments Patient Comments pt is agreeable to do PT Therapy Pain Assessment Pain Present Pain Present Denied Pain M4 PT-IP Mobility and Gait Start: 10/16/20 11:19 Freq: NEEDED Status: Active Protocol: Document 10/16/20 10:09 AB (Rec: 10/16/20 11:31 AB [email or web address]) PT-Bed Mobility Assessment Supine to Sit Supine to Sit Standby Assistance Sit to Supine Sit to Supine Standby Assistance Scooting Scooting to Edge of Bed Standby Assistance Scooting Up and Down in Bed Standby Assistance PT-Transfer Assessment Sit to and From Stand Sit to and from Stand Standby Assistance,Use of Upper Extremities Equipment Transfer Assistive Device None,Gait Belt Orthotic/Prosthetic Devices or Brace: No Transfers Transfer Destination Toilet Transfer Technique ambulated without AD Transfer Ability Level of Assist Standby Assistance Comments Mobility Comments BP in supine: 162/80pt completed supine to sit SBA. able to sit on EOB SBA. BP sittin/81. completed sit to stand SBA and ambulated in room without AD SBA. pt without LOB. agreed to do stairs and ambulated towards the stairs without AD ~ 50 ft. completed up/down steps initially with bilateral rails and repeated with just using L rail and then again with just R rail. pt with slow gosnalo. c/o lightheadness during stair climbing. was able to ambulate back to his room and sat on chair. BP checked: 146/74. after ~ 2 min of rest, BP checked again: 171/80. positioned pt on chair but pt requested to use the toilet and ambulated to the toilet without AD SBA. endorsed to NAC. informed nurse regarding pt's BP and c/ o lightheadedness. Gait Assessment Gait Gait Assistance Required: Standby Assistance Distance (Feet) 50 Able to Maintain Weight Bearing Status Yes During Gait Assistive Devices Assistive Device None,Gait Belt Orthotic/Prosthetic Devices or Brace: No Factors Limiting Gait Function Factors Limiting Gait Function Decreased Activity Tolerance, Decreased Strength,Poor Balance Comments Gait Comments pls refer to mobility section for details. pt presents with slow gonsalo but without LOB. Stair Climbing Assessment Evaluation Level of Assist On Stairs Standby Assistance Devices Stair Climbing Assistive Devices Left Railing,Right Railing Technique/Endurance Stair Climbing Direction Ascend and Descend Stair Climbing Technique Step Over Step Number of Steps Climbed 3 Query Text: Stair Climbing Set # Repetitions (reps) 3 Comments Stair Climbing Comments pls refer to mobility section for details PT-Balance Assessment Sitting Balance and Reactions Static Sitting Balance Ability Normal Dynamic Sitting Balance Ability Normal Standing Balance and Reactions Static Standing Balance Ability Good Dynamic Standing Balance Ability Good Device Used without AD M5 PT-IP Objective Assessments Start: 10/16/20 11:19 Freq: NEEDED Status: Active Protocol: Document 10/16/20 10:09 AB (Rec: 10/16/20 11:31 AB [id number]) Orientation Orientation/Cognition Level of Alertness Alert Orientation Name,Place,Situation Language Function Ability Hard of Hearing Safety Awareness Decreased Safety Awareness Memory Description No Deficits Noted Gross Range of Motion Lower Extremity ROM Assessment Within Functional Limits Strength Lower Extremity Strength Assessment Right Impaired Comments Strength Comments LLE: 4/5 RLE: 4-/5 Coordination Assessment Gross Coordination Gross Coordination WNL Sensation Assessment Sensation Sensation Description Numbness Comments Sensation Comments c/o facial numbness on B side but without c/o on UE/LE L side facial droop M6 PT-IP Treatment Start: 10/16/20 11:19 Freq: NEEDED Status: Active Protocol: Document 10/16/20 10:09 AB (Rec: 10/16/20 11:31 AB [id number]) Physical Therapy Treatment Education Education Provided Safety M7 PT-IP Assessment and Plan Start: 10/16/20 11:19 Freq: NEEDED Status: Active Protocol: Document 10/16/20 10:09 AB (Rec: 10/16/20 11:31 [id number]) PT Summary Assessment and Plan Potential Rehabilitation Potential Good Status of Condition at Evaluation Stable Summary Impairments Pain,ROM,Strength,Balance, Sensation,Bed Mobility, Transfers,Gait,Activity Tolerance Assessment Summary pt requiring SBA with mobility and plans to go home with spouse to assist him. pt has h/o fam's palsy. MRI result is unremarkable for CVA and nurse stated that it is fam's palsy. recommending outpt PT / SENIOR CARE ASSISTANT to address facial weakness. Goals Bed Mobility Goal Independent Transfer Goal Independent Gait Goal Independent Gait Distance 200 Other Goals up/down 6 steps using 1 rail mod I Days to Meet Goals 3 Frequency of Treatment Frequency Of Treatment Once a Day Treatment Plan Physical Therapy Treatment Plan Bed Mobility Training,Transfer Training,Gait Training, Therapeutic Exercise,Balance Retraining,Discharge Planning, Hot or Cold Pack,Neuromuscular Re-ed,Coordination Retraining ,Manual Therapy Other Recommendations and Next Treatment ambulation, stair climbing Focus Recommendations To Nursing Amount of Assist Needed Standby Assistance Discharge Recommendations PT Discharge Recommendations Home with Assistance, Outpatient PT Transportation Needs at Discharge Private Vehicle
--- NOTE | 2020-10-16 10:45 | CM.DANOTE ---
DCP/Assessment: Reviewed chart. Patient is a 80yr old male admitted to [facility] with left sides facial numbness. PCP is Dr. Mora. Primary payor is 1)Medicare 2)[employer]. Met with patient this AM explained CM role. Patient currently with diagnosis of Shaw's Palsy. Patient with no current deficits except for swelling on left side of face. Spoke with provider whom confirms Shaw's Palsy dx and plans to discharge patient home today on po steroids. Patient reports that his spouse will be providing transport. P: Home today. TEVIN Stout Discharge Planning/Care Management CM Discharge Assessment Start: 10/16/20 10:42 Freq: Status: Active Protocol: Document 10/16/20 10:43 KJS (Rec: 10/16/20 10:45 KJS [id number]) Discharge Planning Assessment Assigned Audit Clerks Supervisor TEVIN Stout Contact Information Carmen Tay (daughter) ph# [phone] Advance Directives? No History Provided By Patient,Medical Record Prior Living Arrangements House Household Members spouse Independent with ADL's Yes Is patient alert and oriented? Yes Caregiver for Another No Barriers to Discharge No Discharge Plan Home Transportation Arrangement Family to provide transport. Referrals Initiated None needed Whiteboard Updated in Patient Room with Yes name and ext. # of Audit Clerks Supervisor Review Status In Process Next Review Type Continued Stay Review
[2020-10-16] MEDS: INSULIN ASPART 100 UNIT/ML INSULN PEN 10 UNIT SUBCUT (12:48)
[2020-10-16] MEDS: INSULIN ASPART 100 UNIT/ML INSULN PEN SUBCUT (12:48)
--- NOTE | 2020-10-16 14:07 | PC.NURSE ---
Day shift: Paperwork signed and all questions answered. Pt has all personal belongings. MD scripts sent electronic by . Pt given info on Shaw's Palsey. Pt has F/U appointment on October 30 and the details are on the paperwork. Taken to car driven by his son by [employer]. Pt has been steady on his feet. Pt also stated he is happy to be going back home today.
--- NOTE | 2020-10-16 16:18 | ST.IPIE ---
Visit Care Team Role Provider Type Maverick Mora MD Primary Care Provider Non-Staff Specialty: Medical Address: [address] [place] [address] [address], [place], [address] Email: Eloy Wilson DO Emergency Provider Physician Referring Provider Specialty: Emergency Medicine Address: [address] [place] [address], [id number] Email: [email or web address] CELIO Ferreira Admit Provider Physician Attending Provider Specialty: Internal Medicine Address: [address] [place] [address], [facility] Email: [email or web address] Past Medical History (Last Reviewed 10/15/20 @ 22:47 by Eloy Wilson DO) Shaw's palsy (Medical) Gout (Medical) Hyperlipidemia (Medical) Hypertension (Medical) Kidney stone (Medical) Type 2 diabetes mellitus (Medical) ST IP Initial Evaluation Report COD CLERK Clinical Swallow Evaluation Start: 10/16/20 15:40 Freq: Status: Active Protocol: Document 10/16/20 15:41 [email or web address] (Rec: 10/16/20 16:18 [email or web address] [id number]) Clinical Swallow Evaluation Session Time Visit Start Time 08:45 Visit Stop Time 09:05 Total Visit Minutes 20 Referral Referring Provider CELIO Ferreira Reason for Referral Possible CVA Setting Assessment Location Acute Care Visit Type Note Type Initial evaluation Patient Information Identification Type Name,ID Card History Per H&P: The pt is a 72-year- old male patient with a history of hypertension, hyperlipidemia, diabetes, Shaw 's palsy in count who experienced an onset of facial drooping if report of left facial numbness 3 days ago thought to be recurrence of his previous Shaw's palsy. The patient developed eyelid numbness and droop today prompting him to present to the clinic who referred him to the emergency department for further evaluation. Subjective Observations The pt was sitting up in bed eating breakfast upon COD CLERK arrival. He stated that chewing was difficult with right side weakness and he was experiencing occasional drooling from right side of mouth. He denied any difficulty with pharyngeal swallow. Reported by Patient Other Symptoms Drooling Comment More effort required for mastication Current Diet Regular,Thin liquids Baseline Feeding Method Independent in self-feeding Objective Assessment Mental Status Alert,Responsive,Cooperative Dentition Dentures or partials present, Adequate denture or partial fitting Lip Function Moderate impairment Observation of Lips at Rest Right sided weakness/Drooping Pucker Reduced range of motion, Reduced strength,Right sided weakness/drooping Lip Retraction Reduced range of motion,Right sided weakness/Drooping Alternating Pucker/Lip Retraction Reduced range of motion Tongue Function Within normal limits Observations of Tongue at Rest Within normal limits Tongue Protrusion Within normal limits Tongue Retraction Within normal limits Tongue Lateralization Within normal limits Jaw Function Within normal limits Observations of Jaw at Rest Within normal limits Jaw Opening Within normal limits Jaw Closing Within normal limits Jaw Lateralization Within normal limits Hard/Soft Palate Function Within normal limits Observations of Hard/Soft Palate Within normal limits Nasality Within normal limits Phonation Within normal limits Respiratory Sufficiency Within normal limits Comment Significant right side facial droop resulting in limited lingual and buccal strength and ROM, and in reduced lip seal at right side requiring use of straw to consume and contain liquids. The pt was able to masticate bilaterally. Food and Liquid Trials Position During Assessment Upright (90 degrees) Liquids Trialed Thin Solids Trialed Dysphagia Mechanical,Regular Administration Type Controlled cup sip,Cup consecutive sips,Straw,Self- feeding Oral Impairment Mildly impaired Oral Phase Comments The pt was able to consume liquids via straw with only occ right side anterior leakage which he independently and effectively managed with a napkin. Mastication was mildly slow but bilateral and sufficient. No pocketing or abnormal oral residue was present after swallow. Swallow trigger appeared to be prompt . Hyolaryngeal elevation and excursion was WNL via palpation. Pharyngeal Impairment Within normal limits Pharyngeal Phase Comments No overt s/sx of aspiration were observed with all trials. The pt's voice remained clear throughout. Fatigue/Endurance Endurance WNL Findings Swallowing Function Oral phase dysphagia Severity of Swallow Impairment Mildly impaired Contributing Factors to Swallow Reduced oral strength/ Impairment coordination/sensation Prognosis Good Based on Cognitive status,Comorbidities ,Duration of symptoms/severity Impact on Safety and Functioning No limitations Comments Greater effort required for oral prep phase Recommendations Instrumental Assessment No Swallowing Treatment No Recommended Solids Regular Recommended Liquids Thin Safety Precautions/Swallowing Remain upright (90 degrees) Recommendations during all oral intake,Upright position at least 30 minutes after meals,Small bites and sips when eating Medication Recommendations As Tolerated Discharge Recommendations Home Education Patient/Caregiver Education Described results of evaluation,Patient expressed understanding of evaluation, Patient expressed agreement with goals & treatment plans
== END 2020-10-16 14:10 | disposition home or self-care (01) ==
LOC: ED 19:46 → AC 19:50
PROVIDERS: Admitting Provider Nurse Practitioner Adult Health; Emergency Provider Emergency Medicine; PCP Family Medicine; Referring Provider Emergency Medicine; Visit Provider Nurse Practitioner Adult Health
DX: G51.0 Bell's palsy (principal); R20.0 Anesthesia of skin; E11.9 Type 2 diabetes mellitus without complications; Z79.4 Long term (current) use of insulin; I10 Essential (primary) hypertension; E78.5 Hyperlipidemia, unspecified; M1A.9XX0 Chronic gout, unspecified, without tophus (tophi); R94.4 Abnormal results of kidney function studies; Z11.59 Encounter for screening for other viral diseases
CPT/HCPCS: 36415; 70450; 70548; 70553; 80048; 80053; 80061; 82550; 82553; 82962; 83036; 83690; 83735; 84443; 84484; 85025; 85610; 85730; 87635; 92523; 92610; 93005; 94762; 96372; 97161; 99284; G0378; J1650

== ENCOUNTER 2023-12-22 23:08 | Observation (INO) | payer MEDICARE, OTHER, SELFPAY ==
[2020-10-15 21:14] VITALS: BMI 25.8
[2023-12-22 23:13] VITALS: BP 194/95; PULSE 78; RESP 20; TEMP 36.7; O2SAT 97; BMI 23.6
[2023-12-22 23:14] VITALS: PULSE 71; RESP 12; O2SAT 97
--- NOTE | 2023-12-22 23:20 | DI.RAD.S_ITS ---
PROCEDURE: XR CHEST 1V INDICATIONS: chest pain TECHNIQUE: One view of the chest was acquired. COMPARISON: None. FINDINGS: Surgical changes and devices: Sternotomy. Lungs and pleura: There is bilateral interstitial prominence. No pleural effusions or pneumothorax. Mediastinum: Mediastinal contours appear normal. Heart size is moderately enlarged. Bones and chest wall: No suspicious bony lesions. Overlying soft tissues appear unremarkable. IMPRESSION: Cardiomegaly and pulmonary interstitial prominence suspicious for mild CHF. Dictated by: Yajaira Garrison M.D. on 12/22/2023 at 23:43 Approved by: Yajaira Garrison M.D. on 12/22/2023 at 23:44
[2023-12-22 23:30] VITALS: BP 175/84; PULSE 68; RESP 19; O2SAT 96
[2023-12-22 23:33] LABS: Add Manual Diff / Slide Review NO; Basophils Absolute Auto 100 /uL (0-100); Basophils Percent Auto 1.1 % (0-2); Eosinophils Absolute Auto 400 /uL (0-450); Eosinophils Percent Auto 5.5 % (2-4); Hematocrit 30.7 % (41-53); Hemoglobin 10.3 g/dL (13.5-17.5); Lymphocytes Absolute Auto 1100 /uL (1100-4500); Mean Corpuscular HGB Conc 33.5 % (30-36); Mean Corpuscular Hemoglobin 29.8 PG (26-34); Mean Corpuscular Volume 89.1 fL (80-100); Monocytes Absolute Auto 400 /uL (0-900); Monocytes Percent Auto 5.9 % (3-14); Neutrophils Absolute Auto 5400 /uL (1500-7000); Neutrophils Percent Auto 72.5 % (50-75); Platelet Count 225 X10^3/uL (150-400); Red Blood Cell Count 3.44 X10^6/uL (4.5-5.9); Red Cell Distribution Width 14.5 % (11.6-14.8); White Blood Cell Count 7.4 X10^3/uL (4.5-11.0)
[2023-12-22 23:34] LABS: Alanine Aminotransferase 25 IU/L (<50); Albumin 3.9 g/dL (3.5-5.0); Albumin Globulin Ratio 1.1 (1.0-2.8); Alkaline Phosphatase 104 U/L (38-126); Aspartate Aminotransferase 29 IU/L (17-59); BUN Creatinine Ratio 12.7 (6-22); Bilirubin Total 0.5 mg/dL (0.2-1.3); Blood Urea Nitrogen 40 mg/dL (9-20); Calcium 8.8 mg/dL (8.4-10.2); Carbon Dioxide 25 mmol/L (22-32); Chloride 101 mmol/L (98-107); Creatine Kinase 103 U/L (55-170); Estimated Glomerular Filt Rate 19 mL/min (>60); Globulin 3.5 g/dL (1.7-4.1); Glucose 163 mg/dL (80-110); HEMOLYSIS 31 (0-50); Lipase 124 U/L (23-300); Sodium 136 mmol/L (137-145); Total Protein 7.4 g/dL (6.3-8.2)
--- NOTE | 2023-12-22 23:38 | ED.CHESTPAIN ---
HPI - Chest Pain General Chief Complaint: Chest Pain Stated Complaint: Chest pain Time Seen by Provider: 12/22/23 23:19 Source: patient and EMS Mode of arrival: EMS Limitations: no limitations History of Present Illness HPI narrative: Patient is an 83-year-old male. A known history of coronary artery disease. 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 States that this evening he had just gotten home from having dinner when he started to have chest pressure. Was a gradual onset but did come to its maximum intensity fairly quickly. Not worse with palpation or movement or breathing. He stated that it feels similar to what his symptoms were like that led up to his heart surgery. He has not had symptoms like this since then. He received nitroglycerin by EMS. This did resolve his symptoms. He did receive an aspirin prior to arrival as well. He has been taking all of his medications as directed. He is currently asymptomatic. Related Data Home Medications Medication Instructions Recorded Confirmed allopurinol 100 mg tablet 100 mg PO DAILY 10/15/20 10/15/20 amlodipine 10 mg tablet 10 mg PO DAILY 10/15/20 10/15/20 aspirin 81 mg tablet,delayed 81 mg PO DAILY 10/15/20 10/15/20 release atorvastatin 40 mg tablet 40 mg PO DAILY 10/15/20 10/15/20 carvedilol 25 mg tablet 25 mg PO BID 10/15/20 10/15/20 eplerenone 25 mg tablet 25 mg PO BID 10/15/20 10/15/20 fenofibrate 160 mg tablet 160 mg PO DAILY 10/15/20 10/15/20 insulin aspart U-100 100 unit/mL 10 unit SUBCUT AC 10/15/20 10/15/20 (3 mL) subcutaneous pen (Novolog FlexPen U-100 Insulin aspart) insulin glargine 100 unit/mL (3 30 unit SUBCUT DAILY 10/15/20 10/15/20 mL) subcutaneous pen (Lantus Solostar U-100 Insulin) losartan 50 mg tablet 100 mg PO DAILY 10/15/20 10/15/20 Previous Rx's Medication Instructions Recorded prednisone 10 mg tablet See Rx Instructions .Route 10/16/20 .COMPLEX #27 tabs Allergies Allergy/AdvReac Type Severity Reaction Status Date / Time No Known Drug Allergies Allergy Verified 01/23/24 23:22 Review of Systems Review of Systems ROS Unobtainable: All systems reviewed & are unremarkable except as noted in HPI and below Patient History Medical History Kidney stone Gout Type 2 diabetes mellitus Hyperlipidemia Hypertension Shaw's palsy Surgical History (Updated 10/15/20 @ 22:04 by CELIO Ferreira) History of left heart catheterization History of appendectomy Family History (Updated 10/15/20 @ 21:54 by CELIO Ferreira) Father Cerebral hemorrhage Mother Medical history unknown Sister Diabetes mellitus Social History household members: spouse Smoking Status: Former smoker alcohol intake: former Smoking Status: Former smoker Substance Use Type: does not use Exam Initial Vital Signs Initial Vital Signs: Vital Signs Temperature 98.0 F 12/22/23 23:13 Pulse Rate 78 12/22/23 23:13 Respiratory Rate 20 12/22/23 23:13 Blood Pressure 194/95 H 12/22/23 23:13 Pulse Oximetry 97 12/22/23 23:13 Oxygen Delivery Method Room Air 12/22/23 23:13 Const General: cooperative and No ill appearing HENMT Head: normal to inspection and normocephalic Resp Effort & Inspection: normal respiratory effort Auscultation: clear to auscultation bilaterally Cardio Rate: regular rate Rhythm: regular rhythm GI Inspection: normal to inspection and non-distended Palpation: soft and No tender Skin General: no rashes or lesions noted Neuro General: patient alert, patient awake and moves all extremities Extrem General: capillary refill normal Course Orders Ordered: ED Orders 12/22/23 23:10 Complete Blood Count AUTO DIFF Stat Comprehensive Metabolic Panel Stat Lipase Stat Troponin & CK Cardiac Panel Stat 12/22/23 23:20 XR chest 1V Stat EKG-12 Lead Stat Acetaminophen (Acetaminophen 325 Mg Tablet) 650 mg PO Q6H PRN PRN Reason: Fever/Mild Pain (1-3) Hydrocodone Bitart/Acetaminophen (Hydrocodone/Acet 5/325 Tablet) 1 tab PO Q4H PRN PRN Reason: Pain, Moderate (4-6) Albuterol (Albuterol 2.5 Mg/3 Ml Neb (Adult)) 2.5 mg INH [id number] PRN PRN Reason: Dyspnea Amlodipine Besylate (Amlodipine 5 Mg Tablet) 10 mg PO DAILY [facility] Aspirin (Aspirin Ec 81 Mg Tablet) 81 mg PO DAILY [facility] Atorvastatin Calcium (Atorvastatin 20 Mg Tablet) 40 mg PO DAILY [facility] Carvedilol (Carvedilol 12.5 Mg Tablet) 25 mg PO BID [facility] Fenofibrate (Fenofibrate, Micronized 67 Mg Capsule) 201 mg PO DAILY [facility] Hydralazine HCl (Hydralazine 25 Mg Tablet) 25 mg PO Q6HR PRN PRN Reason: Hypertension Sodium Chloride (Normal Saline 0.9%) 1,000 mls @ 125 mls/hr IV CONT ALEA Sodium Chloride (Normal Saline 0.9%) 1,000 mls @ 100 mls/hr IV CONT [facility] Dextrose (D10w) 100 mls @ 1,200 mls/hr IV PRN PRN PRN Reason: Hypoglycemia Insulin Glargine (Insulin Glargine 100 Unit/Ml 3ml Pen) 30 unit SUBCUT DAILY [facility] Insulin Human Lispro (Insulin Lispro 100 Unit/Ml 3ml Vial) 10 unit SUBCUT AC [facility] Insulin Human Lispro (Insulin Lispro 100 Unit/Ml 3ml Vial) 0 unit SUBCUT ACHS ALEA; Protocol Losartan Potassium (Losartan 50 Mg Tablet) 100 mg PO DAILY [facility] Melatonin (Melatonin 3 Mg Tablet) 9 mg PO BEDTIME PRN PRN Reason: insomnia Morphine Sulfate (Morphine 4 Mg/Ml Inj) 3 mg IV Q2HR [facility] Naloxone HCl (Naloxone 0.4 Mg/Ml Vial) 0.2 mg IV Q2MIN PRN PRN Reason: Opiate Reversal Nitroglycerin (Nitroglycerin 0.4 Mg Sl Tab) 0.4 mg SL [id number] PRN PRN Reason: Chest Pain Ondansetron HCl (Ondansetron 4 Mg/2 Ml Inj) 4 mg IV Q8HR PRN PRN Reason: Nausea And Vomiting Vital Signs Vital signs: Vital Signs - 8 hr 12/22/23 23:13 12/22/23 23:14 12/22/23 23:30 Temperature 98.0 F Pulse Rate 78 71 Respiratory Rate 20 12 Blood Pressure 194/95 H 175/84 H Pulse Oximetry 97 97 Oxygen Delivery Method Room Air Room Air 12/22/23 23:30 12/23/23 00:00 12/23/23 00:00 Temperature Pulse Rate 68 69 Respiratory Rate 19 14 Blood Pressure 189/88 H Pulse Oximetry 96 94 Oxygen Delivery Method [facility] - Chest Pain Lab Data Attestation: I reviewed the patient's lab results. 12/22/23 23:10 12/22/23 23:10 Labs: Lab Results 12/22/23 Range/Units 23:10 WBC 7.4 (4.5-11.0) X10^3/uL RBC 3.44 L (4.5-5.9) X10^6/uL Hgb 10.3 L (13.5-17.5) g/dL Hct 30.7 L (41-53) % MCV 89.1 (80-100) fL MCH 29.8 (26-34) PG MCHC 33.5 (30-36) % RDW 14.5 (11.6-14.8) % Plt Count 225 (150-400) X10^3/uL Neut % (Auto) 72.5 (50-75) % Lymph % (Auto) 15.0 L (25-40) % Davie % (Auto) 5.9 (3-14) % Eos % (Auto) 5.5 H (2-4) % Baso % (Auto) 1.1 (0-2) % Neut # (Auto) 5400 (7089-2083) /uL Lymph # (Auto) 1100 (2930-2727) /uL Davie # (Auto) 400 (0-900) /uL Eos # (Auto) 400 (0-450) /uL Baso # (Auto) 100 (0-100) /uL Sodium 136 L (137-145) mmol/L Potassium 4.0 (3.4-5.1) mmol/L Chloride 101 (98-107) mmol/L Carbon Dioxide 25 (22-32) mmol/L BUN 40 H (9-20) mg/dL Creatinine 3.16 H (0.66-1.25) mg/dL Estimated GFR 19 L (>60) mL/min BUN/Creatinine Ratio 12.7 (6-22) Glucose 163 H (80-110) mg/dL Calcium 8.8 (8.4-10.2) mg/dL Total Bilirubin 0.5 (0.2-1.3) mg/dL AST 29 (17-59) IU/L ALT 25 (<50) IU/L Alkaline Phosphatase 104 (38-126) U/L Total Creatine Kinase 103 (55-170) U/L Troponin I < 0.012 (0.01-0.034) ng/mL Total Protein 7.4 (6.3-8.2) g/dL Albumin 3.9 (3.5-5.0) g/dL Globulin 3.5 (1.7-4.1) g/dL Albumin/Globulin Ratio 1.1 (1.0-2.8) Lipase 124 (23-300) U/L Imaging Data Chest x-ray: Radiologist's Impression: PROCEDURE: XR CHEST 1V INDICATIONS: chest pain TECHNIQUE: One view of the chest was acquired. COMPARISON: None. FINDINGS: Surgical changes and devices: Sternotomy. Lungs and pleura: There is bilateral interstitial prominence. No pleural effusions or pneumothorax. Mediastinum: Mediastinal contours appear normal. Heart size is moderately enlarged. Bones and chest wall: No suspicious bony lesions. Overlying soft tissues appear unremarkable. IMPRESSION: Cardiomegaly and pulmonary interstitial prominence suspicious for mild CHF. ECG Data Attestation: I personally reviewed and interpreted this ECG as follows: Interpretation: Sinus rhythm Ventricular rate is 73 Normal axis Normal QRS Normal QTC No ST T wave changes MDM Narrative Medical decision making narrative: Patient is currently asymptomatic. Has a known history of coronary artery disease. Nonischemic EKG. Troponin is negative. Chest x-ray is unremarkable. Given his history I did discuss the case with Dr. Phillips on-call with General surgery who recommended the patient be admitted to the hospital for further risk stratification to include echocardiogram and stress test. Dr. Phillips did not feel that the patient needed transfer for emergent cardiac catheterization. I then discussed the case with Dr. Granger hospitalist on-call who will admit. Discussed the need for admission with the patient and his family at bedside. They expressed understanding and agreement. Discharge Plan Departure Patient Disposition: Admitted as Observation Clinical Impression: Chest pain, Hypertension Admit Date/Time: 12/23/23 00:24 Admit Provider: Vito Granger
[2023-12-22 23:46] LABS: Troponin I < 0.012 ng/mL (0.01-0.034)
[2023-12-23] VITALS (15 sets, daily range): BP systolic 131–189; BP diastolic 71–95; PULSE 63–82; RESP 14–17; TEMP 36.6–36.9; O2SAT 94–97; BMI 23.5
[2023-12-23] MEDS: SODIUM CHLORIDE 0.9% 1,000 ML 125 ML IV
--- NOTE | 2023-12-23 | PC.NURSE ---
Normal saline continuous infusion started 125ml/hr at this time. Expa not working at this time, charge nurse aware.
[2023-12-23 01:17] LABS: Hemoglobin A1C% w Est Avg Glu 6.4 % (4.0-6.0)
[2023-12-23] MEDS: SODIUM CHLORIDE 0.9% 1,000 ML 100 ML IV ×2 (01:39→18:29)
[2023-12-23 01:47] LABS: Thyroid Stimulating Hormone 2.76 uIU/mL (0.47-4.68)
--- NOTE | 2023-12-23 02:27 | PM.HP.1 ---
History of Present Illness History of Present Illness Chief complaint: Chest pain Narrative: History of hypertension, hyperlipidemia, diabetes mellitus type 2, insulin-dependent, CAD, CABG 2020 presented to the ER with chest pain last night started after he went home from dinner. The pain was described as substernal, moderate, constant, dull, radiating to his chest sides, relieved by nitroglycerin, not associated with anything, similar to the pain when he had a CABG. The patient denies any change of his medications. Follow-up with [facility]. Compliant to his home medications. Denies any fever, shortness of breath, cough, palpitations, nausea, vomiting, abdominal pain, diarrhea or dysuria. Initial laboratory shows WBC 7.4, H&H 10.3/30.7, platelets 225, sodium 136, potassium 4, creatinine 3.16, glucose 163, A1c 6.4, troponin 0.0 12, TSH 2.76, chest x-ray shows cardiomegaly and pulmonary interstitial prominence suspicious for mild CHF, EKG showing sinus rhythm no ischemic changes. [facility] Medical History Kidney stone Gout Type 2 diabetes mellitus Hyperlipidemia Hypertension Shaw's palsy Surgical History (Updated 10/15/20 @ 22:04 by CELIO Ferreira) History of left heart catheterization History of appendectomy Family History (Updated 10/15/20 @ 21:54 by CELIO Ferreira) Father Cerebral hemorrhage Mother Medical history unknown Sister Diabetes mellitus Social History household members: spouse Smoking Status: Former smoker alcohol intake: former Meds Home Medications and Allergies Home Medications Medication Instructions Recorded Confirmed Type allopurinol 100 mg tablet 100 mg PO DAILY 10/15/20 12/23/23 History amlodipine 10 mg tablet 5 mg PO DAILY 10/15/20 12/23/23 History aspirin 81 mg tablet,delayed 81 mg PO DAILY 10/15/20 12/23/23 History release atorvastatin 40 mg tablet 80 mg PO DAILY 10/15/20 12/23/23 History carvedilol 25 mg tablet 18.75 mg PO BID 10/15/20 12/23/23 History insulin aspart U-100 100 unit/mL 10 unit SUBCUT AC 10/15/20 10/15/20 History (3 mL) subcutaneous pen (Novolog FlexPen U-100 Insulin aspart) insulin glargine 100 unit/mL (3 30 unit SUBCUT DAILY 10/15/20 10/15/20 History mL) subcutaneous pen (Lantus Solostar U-100 Insulin) losartan 50 mg tablet 100 mg PO DAILY 10/15/20 10/15/20 History Allergies Allergy/AdvReac Type Severity Reaction Status Date / Time No Known Drug Allergies Allergy Verified 12/22/23 23:22 Review of Systems Review of Systems ROS: Yes All systems reviewed with the patient and are negative except as otherwise documented Constitutional Constitutional: Reports as per HPI and Reports system reviewed and no additional complaints, except as documented Eyes Eyes: Reports as per HPI and Reports system reviewed and no additional complaints, except as documented ENT Ears, Nose, Mouth, and Throat: Yes as per HPI and Yes system reviewed and no additional complaints, except as documented Cardiovascular Cardiovascular: Reports system reviewed and no additional complaints, except as documented Respiratory Respiratory: Reports system reviewed and no additional complaints, except as documented Gastrointestinal Gastrointestinal: Reports system reviewed and no additional complaints, except as documented Genitourinary Genitourinary: Reports system reviewed and no additional complaints, except as documented Musculoskeletal Musculoskeletal: Reports system reviewed and no additional complaints, except as documented, Reports abnormal gait and Reports numbness Neurologic Neurologic: Reports system reviewed and no additional complaints, except as documented, Reports abnormal gait, Reports confusion and Reports numbness Psychiatric Psychiatric: Reports system reviewed and no additional complaints, except as documented and Reports confusion Exam Vital Signs (past 8 hours): - 12/22/23 23:13 12/22/23 23:14 12/22/23 23:30 Temperature 98.0 F Pulse Rate 78 71 Respiratory Rate 20 12 Blood Pressure 194/95 H 175/84 H Pulse Oximetry 97 97 Oxygen Delivery Method Room Air Room Air 12/22/23 23:30 12/23/23 00:00 12/23/23 00:00 Temperature Pulse Rate 68 69 Respiratory Rate 19 14 Blood Pressure 189/88 H Pulse Oximetry 96 94 Oxygen Delivery Method 12/23/23 00:30 12/23/23 00:30 Temperature Pulse Rate 71 Respiratory Rate 17 Blood Pressure 183/89 H Pulse Oximetry 94 Oxygen Delivery Method Oxygen Delivery Method Room Air Const General: cooperative, comfortable and well developed Orientation: alert and oriented x3 HENMT Head: normal to inspection, normocephalic and atraumatic Face and sinus: normal facial exam Mouth: oral mucosae normal and moist mucous membranes Throat: posterior oropharynx normal Eyes General: appearance normal, both eyes and all related structures Pupils: PERRL EOM: EOM intact bilaterally Neck Neck: normal visual inspection and full ROM Chest Chest: normal inspection of the chest Resp Effort & Inspection: normal respiratory effort and able to speak in complete sentences Auscultation: clear to auscultation bilaterally Cardio Palpation: normal PMI Rate: regular rate Rhythm: regular rhythm Heart Sounds: S1 normal and S2 normal GI Inspection: normal to inspection Palpation: soft and no hepatosplenomegaly Auscultation: normal bowel sounds Skin General: no rashes or lesions noted Lesions: no lesions Rashes: no rashes Trauma: no lacerations or abrasions Neuro General: patient alert, patient awake, patient oriented x3 and no focal motor deficits Cranial Nerves: CN's II-XI intact bilaterally Cognition: normal cognition Speech: speech normal Gait: normal gait Motor: muscle tone normal throughout Sensory Exam: no sensory deficits noted Extrem General: full ROM and no calf tenderness Psych Appearance: grossly normal Mental Status: mental status grossly normal Speech and Movement: speech and movement normal Objective Labs 12/22/23 23:10 12/22/23 23:10 Labs: Laboratory Results - last 24 hr 12/22/23 23:10 WBC 7.4 RBC 3.44 L Hgb 10.3 L Hct 30.7 L MCV 89.1 MCH 29.8 MCHC 33.5 RDW 14.5 Plt Count 225 Neut % (Auto) 72.5 Lymph % (Auto) 15.0 L [place] % (Auto) 5.9 Eos % (Auto) 5.5 H Baso % (Auto) 1.1 Neut # (Auto) 5400 Lymph # (Auto) 1100 [place] # (Auto) 400 Eos # (Auto) 400 Baso # (Auto) 100 Sodium 136 L Potassium 4.0 Chloride 101 Carbon Dioxide 25 BUN 40 H Creatinine 3.16 H Estimated GFR 19 L BUN/Creatinine Ratio 12.7 Glucose 163 H Hemoglobin A1c 6.4 H Calcium 8.8 Total Bilirubin 0.5 AST 29 ALT 25 Alkaline Phosphatase 104 Total Creatine Kinase 103 Troponin I < 0.012 Total Protein 7.4 Albumin 3.9 Globulin 3.5 Albumin/Globulin Ratio 1.1 Lipase 124 TSH 2.76 Assessment & Plan Assessment & Plan narrative: CHEST PAIN: Will admit for trending trops and rule out ACS. Currently chest pain-free. -ASA, nitro sl prn; oxygen prn; morphine as needed -Tele-monitoring, -Restart Coreg, Lipitor and fenofibrate -If unstable will consider nitro/heparin and consult cardiology -2D echo -stress test in AM Diabetes mellitus, type II with long-term current use of insulin, uncontrolled with hyperglycemia, -check HbA1c. -Continue to monitor blood sugar. -Continue diabetic diet with sliding scale insulins with NovoLog sliding scale. -Long-acting insulins in appropriate dosing with Detemir. -hypoglycemia protocol as needed Acute kidney injury on CKD stage III. Presented with creatinine 3.16, baseline between 1.5-1.7. Most likely pre-renal. Chest x-ray shows pulmonary congestion. -monitor UOP. -Hold Losartan -daily BMP -Avoid any nephrotoxic agents, including NSAIDs CHF. Restart aspirin, Coreg, and statins. Add Lasix. Echo in the morning. Hypertension. Restar amlodipine. Hyperlipidemia. Restart Lipitor and fenofibrate. Recheck lipids. Time Spent With Patient Time with patient: 50 to 69 minutes with 50% spent counseling/coordinating care Quality VTE Deep Vein Thrombosis/Pulmonary Embolism Present on Admission: No MIPS - Admit I confirm the patient?s Advance Care Plan is present, Code status is documented, Surrogate decision maker is in patient?s record [If Yes, STOP here]: Yes MIPS - Meds 'Current medications' to include all prescriptions, [id number] products, herbals, cannabis/cannabidiol products, and vitamin/mineral/dietary (nutritional) supplements. I have utilized all available resources to obtain, update, or review the patient?s current medications. [If Yes, STOP here]: Yes
--- NOTE | 2023-12-23 02:53 | PC.NURSE ---
0130 Pt. admitted to room 220 for chest pain. Denies any chest pain upon admission to the floor. No dyspnea & SOB noted with any exertion & no C/O any discomfort. Alert & oriented x4. Oriented to his room. showed how to use the call light & bed controls. Reported no recent fall at home for the psat 3 months. Bed alarm not activated, but instructed to call for any assistance if he needed to get up OOB & call light with in reached. Will continue POC & monitor.
[2023-12-23 03:02] LABS: NT-proBNP (BNP-Adult 18+) 2610 pg/mL (<450)
[2023-12-23] MEDS: HYDRALAZINE 25 MG TABLET PO ×2 (03:54→14:14)
[2023-12-23 05:59] LABS: Cholesterol 158 mg/dL (140-199); HDL Cholesterol 47 mg/dL (40-60); LDL Cholesterol Calculated 87 mg/dL (<100); Triglycerides 120 mg/dL (35-150)
[2023-12-23 06:02] LABS: Alanine Aminotransferase 21 IU/L (<50); Albumin 3.6 g/dL (3.5-5.0); Albumin Globulin Ratio 1.1 (1.0-2.8); Alkaline Phosphatase 93 U/L (38-126); Aspartate Aminotransferase 23 IU/L (17-59); BUN Creatinine Ratio 11.7 (6-22); Bilirubin Total 0.6 mg/dL (0.2-1.3); Blood Urea Nitrogen 35 mg/dL (9-20); Calcium 8.8 mg/dL (8.4-10.2); Carbon Dioxide 27 mmol/L (22-32); Chloride 104 mmol/L (98-107); Estimated Glomerular Filt Rate 20 mL/min (>60); Globulin 3.4 g/dL (1.7-4.1); Glucose 101 mg/dL (80-110); HEMOLYSIS < 15 (0-50); Magnesium 2.1 mg/dL (1.6-2.3); Potassium 3.2 mmol/L (3.4-5.1); Sodium 137 mmol/L (137-145)
--- NOTE | 2023-12-23 06:52 | PC.NURSE ---
[address] Granger, blood pressure parameters with PRN Hydralazine 25 mg. messaged me back & ordered to give Hydralazine if SBP is greater than 160. Will reprot to day RN.
--- NOTE | 2023-12-23 07:02 | DI.ECHO.S_ITS ---
[facility]---------+ [facility] +---------+ : : [address] : : : : [id number] : : : : Phone: [phone] Echocardiogram Report + + :Name: NITA BHAKTA Study Date: 12/23/2023 Height: 68 in : :[facility] ReadingLocation: Weight: 155 lb : : Gender: Male BSA: 1.8 m2 : :: 1940 Age: 83 yrs BP: 172/79 mmHg: :Reason For Study: CONGESTIVE HEART FAILURE EXACERBATION : :Ordering Physician: JOSEPH, : :LUIS ANGEL Performed By: Johnna Loyola : :Referring: LUIS ANGEL RUIZ : + + Interpretation Summary Left ventricular wall thickness is mildly increased. The ejection fraction is estimated to be 65-70%. Grade III diastolic dysfunction. The left atrium is severely dilated. The right ventricle is mild to moderately dilated. The right ventricular systolic function is normal. The right atrium is mild to moderately dilated. There is severe mitral regurgitation. There is trace aortic regurgitation. There is moderate tricuspid regurgitation. The right ventricular systolic pressure is estimated to be at least 74 mmHg based on an estimated right atrial pressure of 3 mm Hg. Compared to the prior study dated 04/16/2023, the mitral regurgitation now appears severe and the PA systolic pressure has increased. Procedure: A two-dimensional transthoracic echocardiogram with color flow and Doppler was performed. The study quality was technically adequate. Comparison is made with the echocardiogram of 04/16/2023. The patient was in sinus rhythm with heart rates between 70-80 bpm during the exam. Left Ventricle: The left ventricle is normal in size. Left ventricular wall thickness is mildly increased. Left ventricular systolic function visually appears normal. The ejection fraction is estimated to be 65-70%. Diastolic parameters suggest a restrictive filling pattern consistent with probable significantly elevated filling pressures. Right Ventricle: The right ventricle is mild to moderately dilated. The right ventricular systolic function is normal. Atria: The left atrium is severely dilated. The right atrium is mild to moderately dilated. There is no Doppler evidence for an interatrial shunt. Mitral Valve: The mitral valve leaflets are slightly calcified. There is severe mitral regurgitation. The mitral regurgitant jet is eccentrically directed. Aortic Valve: The aortic valve is trileaflet. The aortic valve opens well. There is no aortic valve stenosis. There is trace aortic regurgitation. Tricuspid Valve: The tricuspid valve leaflets are thin and pliable. There is moderate tricuspid regurgitation. The right ventricular systolic pressure is estimated to be at least 74 mmHg based on an estimated right atrial pressure of 3 mm Hg. Pulmonic Valve: The pulmonic valve leaflets are thin and pliable; valve motion is normal. There is no pulmonic valvular regurgitation. Great Vessels: The aortic root is normal size. The dimensions of the ascending aorta are normal. The IVC is of normal diameter and collapses greater than 50% with a sniff. This suggests a low right atrial pressure of 3 mm Hg. Pericardium/ Pleura There is no pericardial effusion. There is no pleural effusion. MMode/2D Measurements & Calculations LVIDd: 5.5 cm LVOT diam: 2.1 cm LVIDs: 3.6 cm Ao root diam: 3.4 cm FS: 34.6 % Aortic Jxn: 2.6 cm EPSS: 0.76 cm asc Aorta Diam: 3.3 cm IVSd: 1.3 cm LVPWd: 1.0 cm LV negron. diameter/BSA (cm/m^2): 3.0 LV sys. diameter/BSA (cm/m^2): 2.0 LA A2 area: 27.5 cm2 RA long axis: 5.2 cm LA A4 area: 22.1 cm2 RA area: 16.9 cm2 LA length (vol): 5.5 cm RA vol: 46.7 ml LA vol: 94.5 ml RA : 25.5 ml/m2 LA vol index: 51.5 ml/m2 IVC diam: 1.9 cm RVD1 (basal): 4.3 cm TAPSE: 1.9 cm Doppler Measurements & Calculations Ao V2 max: 132.1 cm/sec LVOT Max Adrián: 89.6 cm/sec Ao V2 mean: 90.1 cm/sec LV V1 max P.2 mmHg Ao max P.0 mmHg LV V1 VTI: 18.1 cm Ao mean P.7 mmHg LAUREN(I,D): 2.5 cm2 Ao V2 VTI: 24.7 cm LAUREN(V,D): 2.3 cm2 sev ratio: 0.73 LAUREN indexed to BSA (cm^2/m^2): 1.4 MV E max adrián: 130.9 cm/sec TR max adrián: 420.2 cm/sec MV A max adrián: 51.1 cm/sec TR max P.8 mmHg MV E/A: 2.6 PA V2 max: 100.5 cm/sec Med Peak E' Adrián: 5.3 cm/sec PA V2 mean: 71.3 cm/sec E/E' med: 24.5 PA mean P.2 mmHg Lat Peak E' Adrián: 5.1 cm/sec PA Accel Time: 0.08 sec E/E' lat: 25.5 E/e' average: 25.0 MV dec time: 0.10 sec MVA(VTI): 2.4 cm2 MV V2 mean: 72.6 cm/sec SV(LVOT): 62.4 ml MV mean P.6 mmHg MV V2 VTI: 26.2 cm Reading Physician:11:10 AM
--- NOTE | 2023-12-23 08:30 | PM.HP.1 ---
History of Present Illness History of Present Illness Date Patient Seen: 12/23/23 Time Patient Seen: 08:30 Date of Onset of Symptoms: 12/22/23 Chief complaint: Chest pain Narrative: From previous note: History of hypertension, hyperlipidemia, diabetes mellitus type 2, insulin-dependent, CAD, CABG 2020 presented to the ER with chest pain last night started after he went home from dinner. The pain was described as substernal, moderate, constant, dull, radiating to his chest sides, relieved by nitroglycerin, not associated with anything, similar to the pain when he had a CABG. The patient denies any change of his medications. 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 Compliant to his home medications. Denies any fever, shortness of breath, cough, palpitations, nausea, vomiting, abdominal pain, diarrhea or dysuria. Initial laboratory shows WBC 7.4, H&H 10.3/30.7, platelets 225, sodium 136, potassium 4, creatinine 3.16, glucose 163, A1c 6.4, troponin 0.0 12, TSH 2.76, chest x-ray shows cardiomegaly and pulmonary interstitial prominence suspicious for mild CHF, EKG showing sinus rhythm no ischemic changes. Additional history: No chest pain this morning. The pain was substernal without associated nausea, diaphoresis or dyspnea. There is no radiation to arm. The pain was similar to pain before his bypass which was a quadruple a Jacque rosario in September of 2021. This did follow eating Turkish food last evening. He had some high epigastric pain as well. He denies recent exertional chest pain or dyspnea. He is followed by [facility]. Echo from 2019 reveals EF of 65-70% with a normal mitral valve and mild mitral regurgitation. [facility] Medical History Kidney stone Gout Type 2 diabetes mellitus Hyperlipidemia Hypertension Shaw's palsy Surgical History S/P CABG x 4 (~08/2021) History of left heart catheterization History of appendectomy Family History Father Cerebral hemorrhage Mother Medical history unknown Sister Diabetes mellitus Social History household members: spouse Smoking Status: Former smoker alcohol intake: former Meds Home Medications and Allergies Home Medications Medication Instructions Recorded Confirmed Type allopurinol 100 mg tablet 100 mg PO DAILY 10/15/20 12/23/23 History amlodipine 10 mg tablet 5 mg PO DAILY 10/15/20 12/23/23 History aspirin 81 mg tablet,delayed 81 mg PO DAILY 10/15/20 12/23/23 History release atorvastatin 40 mg tablet 80 mg PO DAILY 10/15/20 12/23/23 History carvedilol 25 mg tablet 18.75 mg PO BID 10/15/20 12/23/23 History insulin aspart U-100 100 unit/mL 10 unit SUBCUT AC 10/15/20 12/23/23 History (3 mL) subcutaneous pen (Novolog FlexPen U-100 Insulin aspart) insulin glargine 100 unit/mL (3 30 unit SUBCUT DAILY 10/15/20 12/23/23 History mL) subcutaneous pen (Lantus Solostar U-100 Insulin) losartan 50 mg tablet 25 mg PO DAILY 10/15/20 12/23/23 History Iron (ferrous sulfate) 65 mg PO DAILY 12/23/23 12/23/23 History ergocalciferol (vitamin D2) 1,250 1,250 mcg PO WEEKLY 12/23/23 12/23/23 History mcg (50,000 unit) capsule ezetimibe 10 mg tablet 10 mg PO DAILY 12/23/23 12/23/23 History oxybutynin chloride 5 mg tablet 5 mg PO BID 12/23/23 12/23/23 History pen needle, diabetic 32 gauge x 12/23/23 12/23/23 History 1/4 (Sure Comfort Pen Needle) potassium chloride 20 mEq 20 meq PO 3XD 12/23/23 12/23/23 History tablet,extended release(part/cryst) torsemide 20 mg tablet 20 mg PO DAILY 12/23/23 12/23/23 History Allergies Allergy/AdvReac Type Severity Reaction Status Date / Time No Known Drug Allergies Allergy Verified 12/22/23 23:22 Review of Systems Review of Systems Narrative: All else reviewed and otherwise unremarkable except as noted in history and physical. Exam Vital Signs (past 8 hours): - 12/23/23 01:30 12/23/23 03:54 12/23/23 04:47 Temperature 98 F Pulse Rate 76 79 73 Respiratory Rate 16 Blood Pressure 183/95 H 177/89 H 172/79 H Pulse Oximetry 94 Oxygen Flow Rate 0 Oxygen Delivery Method Room Air Oxygen Flow Rate 0 Narrative Exam Narrative: NAD, fluent speech. Normal skull. EOMI, anicteric sclera, symmetric pupils. No facial droop, normal oropharynx. Neck is supple, midline trachea, no adenopathy. Lungs are clear, normal effort. Heart is regular, no murmur. Abdomen is soft, nontender. Extremities are free of edema. Good pedal pulses. Skin is free of rash or lesions. Joints are unremarkable no deformity. He is normal judgment. Moves arms and legs normally. Objective ECG Impression: Nonacute, normal sinus rhythm. Sinus rhythm Ventricular rate is 73 Normal axis Normal QRS Normal QTC No ST T wave changes Imaging Chest x-ray: My impression: Mild pulmonary edema. Radiologist's impression: IMPRESSION: Cardiomegaly and pulmonary interstitial prominence suspicious for mild CHF. Labs 12/22/23 23:10 12/23/23 04:55 Labs: Laboratory Results - last 24 hr 12/22/23 12/23/23 23:10 04:55 WBC 7.4 RBC 3.44 L Hgb 10.3 L Hct 30.7 L MCV 89.1 MCH 29.8 MCHC 33.5 RDW 14.5 Plt Count 225 Neut % (Auto) 72.5 Lymph % (Auto) 15.0 L [place] % (Auto) 5.9 Eos % (Auto) 5.5 H Baso % (Auto) 1.1 Neut # (Auto) 5400 Lymph # (Auto) 1100 [place] # (Auto) 400 Eos # (Auto) 400 Baso # (Auto) 100 Sodium 136 L 137 Potassium 4.0 3.2 L Chloride 101 104 Carbon Dioxide 25 27 BUN 40 H 35 H Creatinine 3.16 H 3.00 H Estimated GFR 19 L 20 L BUN/Creatinine Ratio 12.7 11.7 Glucose 163 H 101 Hemoglobin A1c 6.4 H Calcium 8.8 8.8 Magnesium 2.1 Total Bilirubin 0.5 0.6 AST 29 23 ALT 25 21 Alkaline Phosphatase 104 93 Total Creatine Kinase 103 Troponin I < 0.012 NT-Pro-B Natriuret Pep 2610 H Total Protein 7.4 7.0 Albumin 3.9 3.6 Globulin 3.5 3.4 Albumin/Globulin Ratio 1.1 1.1 Triglycerides 120 Cholesterol 158 LDL Cholesterol, Calc 87 HDL Cholesterol 47 Lipase 124 TSH 2.76 Assessment & Plan Assessment & Plan narrative: CHEST PAIN, present on admission and resolved. - Will admit for trending trops and rule out ACS. Currently chest pain-free. -ASA, nitro sl prn; oxygen prn; morphine as needed -Tele-monitoring, -Restart Coreg, Lipitor and fenofibrate -If unstable will consider nitro/heparin and consult cardiology -2D echo -stress test in AM -discussed with Cardiology this morning, we will proceed with stress test. Diabetes mellitus, type II with long-term current use of insulin, uncontrolled with hyperglycemia, -check HbA1c. -Continue to monitor blood sugar. -Continue diabetic diet with sliding scale insulins with NovoLog sliding scale. -Long-acting insulins in appropriate dosing with Detemir. -we will hold insulin this morning until stress test. Acute kidney injury on CKD stage III. Presented with creatinine 3.16, baseline between 1.5-1.7. Most likely pre-renal. Chest x-ray shows pulmonary congestion. -monitor UOP. -Hold Losartan -daily BMP -Avoid any nephrotoxic agents, including NSAIDs -will monitor renal funstion. Repeat BMP today. CHF. Restart aspirin, Coreg, and statins. Add Lasix. Echo in the morning. -we will repeat echo. Last was in 2019. Hypertension. Restart amlodipine. Hyperlipidemia. Restart Lipitor and fenofibrate. Recheck lipids. Time Spent With Patient Time with patient: 50 to 69 minutes with 50% spent counseling/coordinating care Full code. Quality VTE Deep Vein Thrombosis/Pulmonary Embolism Present on Admission: No MIPS - Admit I confirm the patient?s Advance Care Plan is present, Code status is documented, Surrogate decision maker is in patient?s record [If Yes, STOP here]: Yes MIPS - Meds 'Current medications' to include all prescriptions, [id number] products, herbals, cannabis/cannabidiol products, and vitamin/mineral/dietary (nutritional) supplements. I have utilized all available resources to obtain, update, or review the patient?s current medications. [If Yes, STOP here]: Yes Time Spent With Patient Time with patient: 30 to 49 minutes with 50% spent counseling/coordinating care Quality VTE Deep Vein Thrombosis/Pulmonary Embolism Present on Admission: No
[2023-12-23] MEDS: AMLODIPINE 5 MG TABLET PO (09:09)
[2023-12-23] MEDS: ASPIRIN EC 81 MG TABLET PO (09:09)
[2023-12-23] MEDS: FUROSEMIDE 40 MG/4 ML VIAL IV (12:06)
[2023-12-23] MEDS: POTASSIUM CHLORIDE 20 MEQ TAB 40 MEQ PO (12:06)
--- NOTE | 2023-12-23 14:03 | PC.NURSE ---
Assumed patient care from day nurse. Patient has just returned back to room from a stress test. It was passed on in report that provider to read results of stress test will not be avail until 1630 today. Nurse informed patient of this. Patient states he is happy to wait and is rogelio to know if he will be d/c today. Patient is sitting up and eating a meal in bed. Call light w/in reach, bed in low pos. Made aware to call with any concerns.
[2023-12-23 15:19] LABS: BUN Creatinine Ratio 11.4 (6-22); Blood Urea Nitrogen 33 mg/dL (9-20); Calcium 9.4 mg/dL (8.4-10.2); Carbon Dioxide 28 mmol/L (22-32); Chloride 102 mmol/L (98-107); Estimated Glomerular Filt Rate 21 mL/min (>60); Glucose 166 mg/dL (80-110); HEMOLYSIS < 15 (0-50); Potassium 3.8 mmol/L (3.4-5.1); Sodium 137 mmol/L (137-145)
--- NOTE | 2023-12-23 15:35 | PC.NURSE ---
Patients B/P rechecked at 1454 165/78 for a post Hydralozine follow up, prev. at 1414 171/80. Talked with Dr. Mcclendon with results of prev. and new b/p with medication admin. Order to retime Coreg for now. Call placed to pharm for medication re-time. Will admin. medication per plan of care.
--- NOTE | 2023-12-23 15:37 | CM.DANOTE ---
Initial DCP Assessment Note Reviewed EMR and team rounds for pt's medical status and updates. Pt was getting an ECHO at time of this assessment. Lives independently w/spouse in his own home in [place]. Payor: Medicare PCP: Dr. Belkys Zhao Cardiology for OP Pt is a 83 year-old M who presented last evening to the ED with c/o chest pain. Chest pain subsided, pt was brought to the floor and placed in OBS bed for further eval and tx due to trending troponins. Is followed by [facility]. Pending ECHO results, likely d/c later this evening. Family will transport home. No further DCP needs identified at this time. Discharge Planning/Care Management CM Discharge Assessment Start: 12/23/23 15:34 Freq: Status: Active Protocol: Document 12/23/23 15:34 DPL (Rec: 12/23/23 15:37 DPL [id number]) Discharge Planning Assessment Assigned Summer Associate TEVIN Churchill Advance Directives? No History Provided By Medical Record Expected Length of Stay 2 Has Patient been admitted in last 30 No days? Prior Living Arrangements House Household Members spouse Type of transporation used prior to Drives own vehicle admit Independent with ADL's Yes Is patient alert and oriented? Yes Caregiver for Another No Comment OP f/u with Cardiology Barriers to Discharge No Discharge Plan Home Transportation Arrangement Family to provide transport. Referrals Initiated None needed Review Status In Process Please Provide Date Initial DC 12/23/23 Assessment Was Performed Next Review Type Continued Stay Review
[2023-12-23] MEDS: carvediloL 12.5 MG TABLET 18.75 MG PO ×2 (15:40→20:42)
[2023-12-23] MEDS: INSULIN LISPRO 100 UNIT/ML 3ML VIAL SUBCUT (16:54)
[2023-12-23 17:44] LABS: BUN Creatinine Ratio 12.3 (6-22); Blood Urea Nitrogen 36 mg/dL (9-20); Calcium 9.1 mg/dL (8.4-10.2); Carbon Dioxide 28 mmol/L (22-32); Chloride 101 mmol/L (98-107); Estimated Glomerular Filt Rate 21 mL/min (>60); Glucose 150 mg/dL (80-110); HEMOLYSIS < 15 (0-50); Potassium 3.5 mmol/L (3.4-5.1); Sodium 137 mmol/L (137-145)
[2023-12-23] MEDS: ATORVASTATIN 20 MG TABLET 80 MG PO (20:41)
--- NOTE | 2023-12-23 23:42 | PC.NURSE ---
Patient is alert and oriented. Breath sounds with crackles in bilateral bases with RA sat of 97%. HRR w/murmur. Telemetry reading of SR. BP elevated at 157/84. Denied nausea. BT hypoactive but states he has been passing flatus. Voiding per urinal and denied dysuria. Able to move self in bed. Stated he feels unsteady when walking so is provided SBA and using walker when out of bed. Denied pain. Wearing bilateral calf SCD's. Fall risk score is high and bed alarm is activated.
[2023-12-24] VITALS: BP 158/80; PULSE 69; RESP 16; TEMP 36.7; O2SAT 95
--- NOTE | 2023-12-24 02:15 | DI.NM.S_ITS ---
DATE OF SERVICE: 12/23/2023 PROCEDURE: Pharmacological perfusion study. INDICATIONS: Chest pain with known history of bypass surgery, diabetes mellitus, hypertension, hyperlipidemia. RADIOPHARMACEUTICAL: 26.5 millicurie technetium-99m Myoview IV was injected at stress and 8.6 millicurie technetium-99m Myoview IV was injected at rest. CARDIAC STRESS: The patient underwent IV Lexiscan perfusion study under the supervision of an attending staff as per standard protocol. He remained hemodynamically stable. Baseline rhythm was sinus. During stress, no new convincing ischemic changes seen. The patient has baseline, some nonspecific ST-T changes. No significant arrhythmias. No chest pain. Had some shortness of breath. Resting blood pressure was 142/82 mmHg. RAW DATA: There is increased subdiaphragmatic activity. GATED STUDY: Stress LV ejection fraction 71% without any obvious wall motion abnormalities. Stress end-diastolic volume 156 mL. Lung/heart ratio 0.30, which is within normal limits. TID ratio 1.04, which is within normal limits. MYOCARDIAL PERFUSION SCAN: Stress supine, resting supine, and stress prone images were compared to each other. Stress supine images revealed small size, minimally decreased perfusion of basal inferior wall which improved during stress prone images. No convincing ischemia or infarction. CONCLUSION: I will call this study likely a normal myocardial perfusion study with evidence of tissue attenuation artifact which got resolved during stress prone images. No convincing ischemia infarction pattern. Preserved LV function during stress without any obvious wall motion abnormalities. Overall, low-risk perfusion scan. Bob Martin - DARBY/irma/mandy doc#: [id number]/job#: [id number] dd: 12/23/2023 16:18:00 dt: 12/24/2023 02:11:00 DICTATING MD/COPIES TO: Tim Ford MD COPIES MNE: PRIYANK;
[2023-12-24] MEDS: SODIUM CHLORIDE 0.9% 1,000 ML 100 ML IV (04:08)
[2023-12-24 04:14] VITALS: BP 169/79; PULSE 75; RESP 16; TEMP 36.9; O2SAT 94
[2023-12-24] MEDS: HYDRALAZINE 25 MG TABLET PO (04:14)
[2023-12-24 04:46] VITALS: BP 164/82; PULSE 75
[2023-12-24 06:01] LABS: Alanine Aminotransferase 17 IU/L (<50); Albumin 3.4 g/dL (3.5-5.0); Albumin Globulin Ratio 1.1 (1.0-2.8); Alkaline Phosphatase 80 U/L (38-126); Aspartate Aminotransferase 19 IU/L (17-59); BUN Creatinine Ratio 11.8 (6-22); Bilirubin Total 0.9 mg/dL (0.2-1.3); Blood Urea Nitrogen 34 mg/dL (9-20); Calcium 8.8 mg/dL (8.4-10.2); Carbon Dioxide 27 mmol/L (22-32); Chloride 104 mmol/L (98-107); Estimated Glomerular Filt Rate 21 mL/min (>60); Globulin 3.2 g/dL (1.7-4.1); Glucose 116 mg/dL (80-110); HEMOLYSIS < 15 (0-50); Potassium 3.3 mmol/L (3.4-5.1); Sodium 138 mmol/L (137-145); Total Protein 6.6 g/dL (6.3-8.2)
[2023-12-24 08:00] VITALS: BP 159/79; PULSE 76; RESP 16; TEMP 36.9; O2SAT 95
[2023-12-24 09:12] VITALS: BP 159/79; PULSE 76
[2023-12-24] MEDS: carvediloL 12.5 MG TABLET 18.75 MG PO (09:12)
[2023-12-24] MEDS: ASPIRIN EC 81 MG TABLET PO (09:12)
[2023-12-24] MEDS: INSULIN GLARGINE 100 UNIT/ML 3ML PEN 30 UNIT SUBCUT (09:13)
[2023-12-24] MEDS: AMLODIPINE 5 MG TABLET PO (09:13)
[2023-12-24] MEDS: INSULIN LISPRO 100 UNIT/ML 3ML VIAL 10 UNIT SUBCUT (09:14)
[2023-12-24] MEDS: SODIUM CHLORIDE 0.9% FLUSH 10 ML IV (09:15)
--- NOTE | 2023-12-24 09:16 | DI.US.S_ITS ---
PROCEDURE: US RENAL COMPLETE INDICATIONS: [place] TECHNIQUE: Real-time scanning was performed of the kidneys and bladder, with image documentation. COMPARISON: [facility], CT, CT ABDOMEN ADRENAL PROTOCOL, 07/31/2020, 11:27. FINDINGS: Kidneys: Kidneys are normal in size. Right kidney measures 10.6 cm long; left kidney measures 9.6 cm long. There are multiple anechoic simple cysts bilaterally. The largest cyst on the right measures 2.3 x 2.5 x 2.3 cm. The largest cyst on the left measures 1.5 x 1.6 x 1.4 cm. A right lower pole cyst has a mildly thickened septation measuring 1.1 x 1.3 x 1.4 cm. Renal cortical echotexture is normal. No hydronephrosis or nephrolithiasis. No suspicious solid mass lesions. Bladder: Pre-void bladder volume is 143 mL. Post-void residual is 18 mL. Pre-void images demonstrate no intraluminal masses or stones. On pre-void images, no ureteral jets are noted with color Doppler interrogation. (Of note, ureteral jets may not be detectable in up to 25% of cases due to insufficient differences in specific gravity between ureteral and bladder urine). Miscellaneous: No free pelvic fluid. Prostate measures 3.9 x 4.4 x 4 cm. IMPRESSION: 1. No hydronephrosis or nephrolithiasis bilaterally. 2. Right lower pole cyst with mildly thickened septation measuring 1.1 x 1.3 x 1.4 cm (Bosniak 2 F). Recommend repeat ultrasound in 6 months including a cine clip. 3. Normal sonographic appearance of the bladder with no significant postvoid residual. Dictated by: Holden Mahoney M.D. on 12/24/2023 at 12:34 Approved by: Holden Mahoney M.D. on 12/24/2023 at 12:42
--- NOTE | 2023-12-24 11:16 | PM.DS.1 ---
History of Present Illness History of Present Illness Date Patient Seen: 12/24/23 Time Patient Seen: 10:00 Date of Onset of Symptoms: 12/22/23 Chief complaint: Chest pain Narrative: From previous note: History of hypertension, hyperlipidemia, diabetes mellitus type 2, insulin-dependent, CAD, CABG 2020 presented to the ER with chest pain last night started after he went home from dinner. The pain was described as substernal, moderate, constant, dull, radiating to his chest sides, relieved by nitroglycerin, not associated with anything, similar to the pain when he had a CABG. The patient denies any change of his medications. Follow-up with plastics fabricator or welder. Compliant to his home medications. Denies any fever, shortness of breath, cough, palpitations, nausea, vomiting, abdominal pain, diarrhea or dysuria. Initial laboratory shows WBC 7.4, H&H 10.3/30.7, platelets 225, sodium 136, potassium 4, creatinine 3.16, glucose 163, A1c 6.4, troponin 0.0 12, TSH 2.76, chest x-ray shows cardiomegaly and pulmonary interstitial prominence suspicious for mild CHF, EKG showing sinus rhythm no ischemic changes. Additional history: No chest pain this morning. The pain was substernal without associated nausea, diaphoresis or dyspnea. There is no radiation to arm. The pain was similar to pain before his bypass which was a quadruple a Jacque rosario in September of 2021. This did follow eating Sinhala food last evening. He had some high epigastric pain as well. He denies recent exertional chest pain or dyspnea. He is followed by [facility]. Echo from 2019 reveals EF of 65-70% with a normal mitral valve and mild mitral regurgitation. Discharge Providers Provider Date of admission: 12/23/23 00:24 Discharge Date: 12/24/23 Primary care physician: Maverick Mora MD Discharge provider: Zion Mosqueda DO Summary Hospital Course Discharge Diagnosis: CHEST PAIN, present on admission and resolved. Diabetes mellitus, type II with long-term current use of insulin Acute kidney injury on CKD stage III. CHFpEF. Hypertension. Hyperlipidemia. Hospital Course: This is an 83 year old male with PMH of CKD, CHFpEF, HTN, HLD who was admitted with chest pain. He underwent stress testing which was unremarkable. Echocardiogram showed worsening mitral regurgitation, but no focal wall motion abnormalities, no reduced EF but grade III diastolic dysfunction. His creatinine on admission was a bit higher than baseline, after review his Cr appears to be around 2.3 based on PCP records obtained. His creatinine here was initially above 3, but remained around 2.8-2.9. Renal ultrasound was unremarkable. His chest pain resolved after admission. He was discharged home, PCP follow up is recommend for continued monitoring of his CKD. No changes to his home medications are recommended on discharge. Time Spent with Patient Time spent: Greater than 30 minutes Exam Vital Signs (past 8 hours): - 12/24/23 04:14 12/24/23 04:14 12/24/23 04:46 Temperature 98.5 F Pulse Rate 75 75 75 Respiratory Rate 16 Blood Pressure 169/79 H 169/79 H 164/82 H Pulse Oximetry 94 Oxygen Delivery Method Oxygen Flow Rate 0 12/24/23 08:00 12/24/23 09:10 12/24/23 09:12 Temperature 98.5 F Pulse Rate 76 76 Respiratory Rate 16 Blood Pressure 159/79 H 159/79 H Pulse Oximetry 95 Oxygen Delivery Method Room Air Oxygen Flow Rate Oxygen Delivery Method Room Air Oxygen Flow Rate 0 Narrative Exam Narrative: NAD, fluent speech. Normal skull. EOMI, anicteric sclera, symmetric pupils. No facial droop, normal oropharynx. Neck is supple, midline trachea, no adenopathy. Lungs are clear, normal effort. Heart is regular, no murmur. Abdomen is soft, nontender. Extremities are free of edema. Good pedal pulses. Skin is free of rash or lesions. Joints are unremarkable no deformity. He is normal judgment. Moves arms and legs normally. Objective Labs 12/22/23 23:10 12/24/23 04:40 Labs: Laboratory Results - last 24 hr 12/23/23 12/23/23 12/24/23 14:35 17:27 04:40 Sodium 137 137 138 Potassium 3.8 3.5 3.3 L Chloride 102 101 104 Carbon Dioxide 28 28 27 BUN 33 H 36 H 34 H Creatinine 2.89 H 2.93 H 2.89 H Estimated GFR 21 L 21 L 21 L BUN/Creatinine Ratio 11.4 12.3 11.8 Glucose 166 H 150 H 116 H Calcium 9.4 9.1 8.8 Magnesium 2.0 Total Bilirubin 0.9 AST 19 ALT 17 Alkaline Phosphatase 80 Total Protein 6.6 Albumin 3.4 L Globulin 3.2 Albumin/Globulin Ratio 1.1 [facility] Medical History Kidney stone Gout Type 2 diabetes mellitus Hyperlipidemia Hypertension Shaw's palsy Surgical History S/P CABG x 4 (~08/2021) History of left heart catheterization History of appendectomy Family History Father Cerebral hemorrhage Mother Medical history unknown Sister Diabetes mellitus Social History household members: spouse Smoking Status: Former smoker alcohol intake: former Discharge Plan Discharge Plan Patient Disposition: Home Provider Discharge Comment: You were admitted to the hospital with chest discomfort, testing was unremarkable with normal appearing stress test. Please follow up with your plastics fabricator or welder as an outpatient as previously scheduled. A BP medication was increased slightly, no other changes are recommended at this time. Follow up with PCP for continued monitoring of your kidney function, possible referral to nephrology. Discharge orders & Medications Prescriptions: Continued atorvastatin 40 mg tablet 80 mg PO DAILY allopurinol 100 mg tablet 100 mg PO DAILY aspirin 81 mg tablet,delayed release (DR/EC) 81 mg PO DAILY losartan 50 mg tablet 25 mg PO DAILY carvedilol 25 mg tablet 18.75 mg PO BID insulin aspart U-100 [Novolog FlexPen U-100 Insulin] 100 unit/mL (3 mL) insulin pen 10 unit SUBCUT AC insulin glargine [Lantus Solostar U-100 Insulin] 100 unit/mL (3 mL) insulin pen 30 unit SUBCUT DAILY Patient Comments: QD IN THE MORNING. ezetimibe 10 mg tablet 10 mg PO DAILY potassium chloride 20 mEq tablet,ER particles/crystals 20 meq PO 3XD ergocalciferol (vitamin D2) 1,250 mcg (50,000 unit) capsule 1,250 mcg PO WEEKLY torsemide 20 mg Tablet 20 mg PO DAILY oxybutynin chloride 5 mg Tablet 5 mg PO BID Iron (ferrous sulfate) tablet 65 mg PO DAILY (DME) pen needle, diabetic [Sure Comfort Pen Needle] 32 gauge x 1/4 needle MISCELLANEOUS Patient Comments: [NO ORIGINAL SIG] Changed amlodipine 10 mg tablet 10 mg PO DAILY 30 Days Qty: 30 0RF Follow up/Referrals: Maverick Mora MD [Primary Care Provider] - Diet/Activity/Treatments Diet: Diet as Tolerated and Low-protein/Renal Activity: As tolerated, no restrictions Visit Report/Discharge Packet Instructions: DI for Chest Pain Stand Alone Forms: Patient Portal/API, Stroke Signs & Symptoms Discharge Data Primary Care Provider: Maverick Mora Attending Provider: Vito Granger Admit Date/Time: 12/23/23 00:24 Quality VTE Deep Vein Thrombosis/Pulmonary Embolism Present on Admission: No
[2023-12-24 12:00] VITALS: BP 139/69; PULSE 62; RESP 16; TEMP 36.9; O2SAT 100
--- NOTE | 2023-12-24 14:08 | CM.DPC ---
DCP Discharge Home Per MD, called pt's PCP office to get updated labs and then ordered kidney ultrasound and pending results anticipate likely d/c home this afternoon with outpt f/u and no identified barriers to discharge. Per Rn, pt was SBA with FWW in room, no further concerns noted. Plan: Patient to likely d/c home later today pending ultrasound results and outpt f/u with PCP and family support. No SW needs at this time. Jennifer Lemons MSW
== END 2023-12-24 15:40 | disposition home or self-care (01) ==
LOC: ED 23:19 → AC 12-23 00:25
PROVIDERS: Hospitalist; Admitting Provider Internal Medicine; Emergency Provider Emergency Medicine; PCP Family Medicine; Referring Provider Emergency Medicine; Visit Provider Internal Medicine
DX: I50.9 Heart failure, unspecified (principal); I13.0 Hypertensive heart and chronic kidney disease with heart failure and stage 1 through stage 4 chronic kidney disease, or unspecified chronic kidney disease; N18.30 Chronic kidney disease, stage 3 unspecified; E11.22 Type 2 diabetes mellitus with diabetic chronic kidney disease; I25.10 Atherosclerotic heart disease of native coronary artery without angina pectoris; E78.5 Hyperlipidemia, unspecified; Z95.1 Presence of aortocoronary bypass graft; Z79.4 Long term (current) use of insulin
CPT/HCPCS: 36415; 71045; 76770; 78452; 80048; 80053; 80061; 82550; 82962; 83036; 83690; 83735; 83880; 84443; 84484; 85025; 93005; 93017; 93306; 96361; 96372; 96374; 99284; G0378; A9502; J1940; J2785

== ENCOUNTER 2024-07-06 20:02 | Emergency (ER) | payer MEDICARE, OTHER, SELFPAY ==
[2023-12-23 01:45] VITALS: BMI 23.5
[2024-07-06] VITALS (50 sets, daily range): BP systolic 136–187; BP diastolic 67–86; PULSE 54–66; RESP 13–33; O2SAT 91–98; BMI 23.6
--- NOTE | 2024-07-06 20:03 | EKG_ITS ---
[address] [address] Test Date: 2024-07-06 Pat Name: Bob Martin Department: [facility] Room: Gender: Male Primary [employer]: : 1940 Requested By: Order Number: [id number] Reading MD: Allen Prather MD Measurements Intervals [place] Rate: 69 P: 67 DC: 208 QRS: 62 QRSD: 78 T: 48 QT: 430 QTc: 460 Interpretive Statements Normal sinus rhythm Septal infarct , age undetermined Electronically Signed On 07-07-2024 7:37:27 PDT by Allen Prather MD
--- NOTE | 2024-07-06 20:03 | DI.RAD.S_ITS ---
PROCEDURE: XR CHEST 1V INDICATIONS: chest pain TECHNIQUE: One view of the chest was acquired. COMPARISON: [facility], CR, XR CHEST 1V, 12/22/2023, 23:23. FINDINGS: Surgical changes and devices: Post median sternotomy and CABG. Cardiac clip. Lungs and pleura: Blunting of the costophrenic angles. Suspect trace pleural effusions. No pneumothorax. Prominent pulmonary markings. Mediastinum: Mediastinal contours appear normal. Heart size is enlarged. Bones and chest wall: No suspicious bony lesions. Overlying soft tissues appear unremarkable. IMPRESSION: Small bilateral pleural effusions. Pulmonary vasculature engorgement or mild fluid overload/CHF. Cardiomegaly. Dictated by: Celso Pavon M.D. on 07/06/2024 at 20:46 Approved by: Celso Pavon M.D. on 07/06/2024 at 20:49
[2024-07-06 20:20] LABS: Add Manual Diff / Slide Review NO; Basophils Absolute Auto 100 /uL (0-100); Eosinophils Absolute Auto 200 /uL (0-450); Eosinophils Percent Auto 2.1 % (2-4); Hematocrit 27.1 % (41-53); Hemoglobin 9.1 g/dL (13.5-17.5); Lymphocytes Absolute Auto 1100 /uL (1100-4500); Mean Corpuscular HGB Conc 33.6 % (30-36); Mean Corpuscular Hemoglobin 28.5 PG (26-34); Mean Corpuscular Volume 84.8 fL (80-100); Monocytes Absolute Auto 600 /uL (0-900); Monocytes Percent Auto 6.6 % (3-14); Neutrophils Absolute Auto 7600 /uL (1500-7000); Neutrophils Percent Auto 79.3 % (50-75); Platelet Count 284 X10^3/uL (150-400); Red Cell Distribution Width 15.4 % (11.6-14.8); White Blood Cell Count 9.6 X10^3/uL (4.5-11.0)
[2024-07-06 20:24] LABS: INR 0.9 (0.9-1.3); Prothrombin Time 10.8 SECONDS (9.4-12.5)
[2024-07-06 20:26] LABS: PTT Partial Thromboplastin Tim 40 SECONDS (25.1-36.5)
[2024-07-06 20:28] LABS: Alanine Aminotransferase 26 IU/L (<50); Albumin 3.6 g/dL (3.5-5.0); Albumin Globulin Ratio 1.2 (1.0-2.8); Alkaline Phosphatase 124 U/L (38-126); Aspartate Aminotransferase 19 IU/L (17-59); BUN Creatinine Ratio 7.8 (6-22); Bilirubin Total 0.4 mg/dL (0.2-1.3); Blood Urea Nitrogen 43 mg/dL (9-20); Calcium 8.7 mg/dL (8.4-10.2); Carbon Dioxide 22 mmol/L (22-32); Chloride 107 mmol/L (98-107); Creatine Kinase 59 U/L (55-170); Estimated Glomerular Filt Rate 10 mL/min (>60); Glucose 183 mg/dL (80-110); HEMOLYSIS < 15 (0-50); Lipase 108 U/L (23-300); Magnesium 2.3 mg/dL (1.6-2.3); Potassium 4.7 mmol/L (3.4-5.1); Sodium 137 mmol/L (137-145); Total Protein 6.6 g/dL (6.3-8.2)
[2024-07-06 20:39] LABS: NT-proBNP (BNP-Adult 18+) 5210 pg/mL (<450); Troponin I < 0.012 ng/mL (0.01-0.034)
[2024-07-06] MEDS: NITROGLYCERIN 0.4 MG SL TAB SL (20:57)
[2024-07-06] MEDS: MORPHINE 4 MG/ML INJ IV ×2 (21:08→23:58)
--- NOTE | 2024-07-06 21:38 | ED.CHESTPAIN ---
HPI - Chest Pain <Behzad Serrato MD - Last Filed: 07/07/24 15:50> General Chief Complaint: Chest Pain Stated Complaint: chest pain Time Seen by Provider: 07/06/24 21:30 Source: patient and EMS Mode of arrival: EMS Limitations: no limitations History of Present Illness HPI narrative: 84-year-old male with history of chronic kidney disease, known CAD status post 4 vessel CABG procedure 2020 at [facility], more recently 05/25/2024 also at [facility] had mitral valve clip procedure, followed by burial vault maker Dr. Spann through [facility], and also followed by [facility] cardiology Dr. Ford. Complains of right and left anterior chest pain onset 5:00 p.m. tonight at rest, nonradiating, with some shortness of breath, no diaphoresis, no nausea or vomiting. No left or right arm pain, no jaw pain, no back or scapular pain, no leg pain. He has not recently been coughing. He has chronic lower extremity edema that has been worsening over the last couple of weeks. He denies any missed medications. He arrived by EMS and was given nitroglycerin x2 doses and fentanyl, still having pain on arrival although decreased some. Related Data Home Medications Medication Instructions Recorded Confirmed allopurinol 100 mg tablet 100 mg PO DAILY 10/15/20 12/23/23 aspirin 81 mg tablet,delayed 81 mg PO DAILY 10/15/20 12/23/23 release atorvastatin 40 mg tablet 80 mg PO DAILY 10/15/20 12/23/23 carvedilol 25 mg tablet 18.75 mg PO BID 10/15/20 12/23/23 insulin aspart U-100 100 unit/mL 10 unit SUBCUT AC 10/15/20 12/23/23 (3 mL) subcutaneous pen (Novolog FlexPen U-100 Insulin aspart) insulin glargine 100 unit/mL (3 30 unit SUBCUT DAILY 10/15/20 12/23/23 mL) subcutaneous pen (Lantus Solostar U-100 Insulin) losartan 50 mg tablet 25 mg PO DAILY 10/15/20 12/23/23 Iron (ferrous sulfate) 65 mg PO DAILY 12/23/23 12/23/23 ergocalciferol (vitamin D2) 1,250 1,250 mcg PO WEEKLY 12/23/23 12/23/23 mcg (50,000 unit) capsule ezetimibe 10 mg tablet 10 mg PO DAILY 12/23/23 12/23/23 oxybutynin chloride 5 mg tablet 5 mg PO BID 12/23/23 12/23/23 pen needle, diabetic 32 gauge x 12/23/23 12/23/23/ (Sure Comfort Pen Needle) potassium chloride 20 mEq 20 meq PO 3XD 12/23/23 12/23/23 tablet,extended release(part/cryst) torsemide 20 mg tablet 20 mg PO DAILY 12/23/23 12/23/23 Previous Rx's Medication Instructions Recorded amlodipine 10 mg tablet 10 mg PO DAILY 30 days #30 tabs 12/24/23 Allergies Allergy/AdvReac Type Severity Reaction Status Date / Time No Known Drug Allergies Allergy Verified 12/22/23 23:22 Review of Systems <Behzad Serrato MD - Last Filed: 07/07/24 15:50> Review of Systems Narrative: see HPI Patient History <Behzad Serrato MD - Last Filed: 07/07/24 15:50> Medical History Kidney stone Gout Type 2 diabetes mellitus Hyperlipidemia Hypertension Shaw's palsy Surgical History S/P CABG x 4 (~08/2021) History of left heart catheterization History of appendectomy Family History Father Cerebral hemorrhage Mother Medical history unknown Sister Diabetes mellitus Social History household members: spouse Smoking Status: Former smoker alcohol intake: former Smoking Status: Former smoker Substance Use Type: does not use Exam <Behzad Serrato MD - Last Filed: 07/07/24 15:50> Narrative Exam Narrative: GENERAL: Well-developed patient, in mild distress. HEAD: Atraumatic. Normocephalic. EYES: Pupils equal round and reactive. Extraocular motions intact. No scleral icterus. No injection or drainage. ENT: Nose without bleeding, purulent drainage. Throat without erythema, tonsillar hypertrophy or exudate. Airway patent. NECK: Trachea midline. Non tender CARDIOVASCULAR: Regular rate and rhythm without murmurs, gallops, or rubs. Well-healed midline scar. RESPIRATORY: Clear to auscultation. Breath sounds equal bilaterally. Bibasilar crackles present, speaks in full sentences, in supine position. GASTROINTESTINAL: Abdomen soft, non-tender, nondistended. EXTREMITIES: Bilateral lower extremity edema seems equal. No calf tenderness right or left side. BACK: Nontender without deformity or crepitance. No flank tenderness. NEURO: AOx3. SKIN: No rash or erythema of visible areas Initial Vital Signs Initial Vital Signs: Vital Signs Pulse Rate 61 07/06/24 20:13 Respiratory Rate 13 07/06/24 20:13 Blood Pressure 187/86 H 07/06/24 20:13 Pulse Oximetry 94 07/06/24 20:13 Oxygen Delivery Method Room Air 07/06/24 20:13 <Eloy Wilson DO - Last Filed: 07/07/24 13:43> Initial Vital Signs Initial Vital Signs: Vital Signs Pulse Rate 61 07/06/24 20:13 Respiratory Rate 13 07/06/24 20:13 Blood Pressure 187/86 H 07/06/24 20:13 Pulse Oximetry 94 07/06/24 20:13 Oxygen Delivery Method Room Air 07/06/24 20:13 Course <Behzad Serrato MD - Last Filed: 07/07/24 15:50> Orders Ordered: ED Orders 07/07/24 13:17 PTT Partial Thromboplastin Scott Q6H Discontinued Medications Amlodipine Besylate (Amlodipine 5 Mg Tablet) 10 mg PO NOW ONE Stop: 07/07/24 10:13 Last Admin: 07/07/24 10:38 Dose: 10 mg Documented By: DOUG Aspirin (Aspirin 81 Mg Chew Tab) 324 mg PO NOW ONE Stop: 07/06/24 20:04 Last Admin: 07/06/24 20:12 Dose: Not Given Documented By: WADE Carvedilol (Carvedilol 3.125 Mg Tablet) 18.75 mg PO NOW ONE Stop: 07/07/24 10:13 Last Admin: 07/07/24 10:41 Dose: Not Given Documented By: DOUG Carvedilol (Carvedilol 12.5 Mg Tablet) 18.75 mg PO NOW ONE Stop: 07/07/24 10:46 Last Admin: 07/07/24 10:38 Dose: 18.75 mg Documented By: DOUG Furosemide (Furosemide 40 Mg/4 Ml Vial) 40 mg IV NOW ONE Stop: 07/06/24 21:41 Last Admin: 07/06/24 23:12 Dose: 40 mg Documented By: WADE Furosemide (Furosemide 40 Mg/4 Ml Vial) 40 mg IV NOW ONE Stop: 07/07/24 08:12 Last Admin: 07/07/24 08:39 Dose: 40 mg Documented By: DOUG Heparin Sodium (Porcine) (Heparin 5,000 Unit/Ml Vial) 4,000 unit 60 unit/kg (4000 unit) IV NOW ONE Stop: 07/06/24 23:52 Last Admin: 07/07/24 00:00 Dose: 4,000 unit Documented By: VAHID Nitroglycerin (Nitroglycerin) 50 mg in 250 mls @ 1.5 mls/hr IV TITRATE ALEA; Protocol Last Titration: 07/07/24 14:14 Dose: Infused Documented By: Titration: 07/07/24 06:59 Dose: 15 mcg/min, 4.5 mls/hr Documented By: Titration: 07/07/24 06:25 Dose: 25 mcg/min, 7.5 mls/hr Documented By: Titration: 07/07/24 05:50 Dose: 35 mcg/min, 10.5 mls/hr Documented By: Titration: 07/06/24 23:41 Dose: 45 mcg/min, 13.5 mls/hr Documented By: Titration: 07/06/24 23:27 Dose: 35 mcg/min, 10.5 mls/hr Documented By: Titration: 07/06/24 23:13 Dose: 25 mcg/min, 7.5 mls/hr Documented By: Titration: 07/06/24 23:06 Dose: 15 mcg/min, 4.5 mls/hr Documented By: Titration: 07/06/24 22:54 Dose: 10 mcg/min, 3 mls/hr Documented By: Admin: 07/06/24 22:45 Dose: 5 mcg/min, 1.5 mls/hr Documented By: WADE Heparin Sodium/Dextrose (Heparin Drip) 25,000 unit in 500 mls @ 16.874 mls/hr IV CONT ALEA; Protocol Last Titration: 07/07/24 14:15 Dose: 10 units/kg/hr, 14.061 mls/hr Documented By: DOUG Co-signed By: CHETAN Titration: 07/07/24 06:58 Dose: 10 units/kg/hr, 14.061 mls/hr Documented By: Co-signed By: GEOVANNI Titration: 07/07/24 06:30 Dose: 0 units/kg/hr, 0 mls/hr Documented By: Co-signed By: GEOVANNI Admin: 07/07/24 00:02 Dose: 12 units/kg/hr, 16.874 mls/hr Documented By: VAHID Co-signed By: Losartan Potassium (Losartan 25 Mg Tablet) 25 mg PO NOW ONE Stop: 07/07/24 10:13 Last Admin: 07/07/24 10:38 Dose: 25 mg Documented By: DOUG Morphine Sulfate (Morphine 4 Mg/Ml Inj) 4 mg IV NOW ONE Stop: 07/06/24 20:52 Last Admin: 07/06/24 21:08 Dose: 4 mg Documented By: WADE Morphine Sulfate (Morphine 4 Mg/Ml Inj) 4 mg IV NOW ONE Stop: 07/06/24 23:52 Last Admin: 07/06/24 23:58 Dose: 4 mg Documented By: VAHID Nitroglycerin (Nitroglycerin 0.4 Mg Sl Tab) 0.4 mg SL NOW ONE Stop: 07/06/24 20:51 Last Admin: 07/06/24 20:57 Dose: 0.4 mg Documented By: WADE Nitroglycerin (Nitroglycerin 0.4 Mg Patch) 0.4 mg TOP 0700 [facility] Nitroglycerin (Nitroglycerin Oint 1 Inch/Gm Oint...G.) 1 inch TOP NOW ONE Stop: 07/06/24 21:50 Last Admin: 07/06/24 21:55 Dose: Not Given Documented By: WADE Vital Signs Vital signs: Vital Signs - 8 hr 07/07/24 08:00 07/07/24 08:00 07/07/24 08:30 Temperature Pulse Rate 78 Respiratory Rate 15 Blood Pressure 179/84 H 191/86 H Pulse Oximetry 94 Oxygen Delivery Method 07/07/24 08:30 07/07/24 08:33 07/07/24 09:00 Temperature 98.7 F Pulse Rate 78 85 Respiratory Rate 17 20 Blood Pressure Pulse Oximetry 94 92 Oxygen Delivery Method 07/07/24 09:00 07/07/24 09:30 07/07/24 09:30 Temperature Pulse Rate 78 Respiratory Rate 22 Blood Pressure 188/86 H 184/84 H Pulse Oximetry 93 Oxygen Delivery Method 07/07/24 10:00 07/07/24 10:00 07/07/24 10:30 Temperature Pulse Rate 87 Respiratory Rate 12 Blood Pressure 190/88 H 175/83 H Pulse Oximetry 91 Oxygen Delivery Method 07/07/24 10:30 07/07/24 10:38 07/07/24 10:38 Temperature Pulse Rate 78 77 77 Respiratory Rate 12 Blood Pressure 175/83 H 175/89 H Pulse Oximetry 93 Oxygen Delivery Method 07/07/24 11:00 07/07/24 11:00 07/07/24 11:30 Temperature Pulse Rate 77 Respiratory Rate 14 Blood Pressure 170/81 H 165/77 H Pulse Oximetry 94 Oxygen Delivery Method 07/07/24 11:30 07/07/24 12:00 07/07/24 12:00 Temperature Pulse Rate 71 72 Respiratory Rate 13 17 Blood Pressure 173/77 H Pulse Oximetry 95 95 Oxygen Delivery Method Room Air 07/07/24 12:30 07/07/24 12:30 07/07/24 13:00 Temperature Pulse Rate 67 Respiratory Rate 13 Blood Pressure 150/71 H 160/74 H Pulse Oximetry 91 Oxygen Delivery Method 07/07/24 13:00 07/07/24 13:30 07/07/24 14:00 Temperature Pulse Rate 65 68 71 Respiratory Rate 13 15 21 Blood Pressure Pulse Oximetry 92 93 93 Oxygen Delivery Method 07/07/24 14:01 07/07/24 14:01 Temperature Pulse Rate 72 Respiratory Rate 27 H Blood Pressure 165/77 H Pulse Oximetry 92 Oxygen Delivery Method <Eloy Wilson DO - Last Filed: 07/07/24 13:43> Orders Ordered: ED Orders 07/07/24 13:17 PTT Partial Thromboplastin Scott Q6H Discontinued Medications Amlodipine Besylate (Amlodipine 5 Mg Tablet) 10 mg PO NOW ONE Stop: 07/07/24 10:13 Last Admin: 07/07/24 10:38 Dose: 10 mg Documented By: DOUG Aspirin (Aspirin 81 Mg Chew Tab) 324 mg PO NOW ONE Stop: 07/06/24 20:04 Last Admin: 07/06/24 20:12 Dose: Not Given Documented By: WADE Carvedilol (Carvedilol 3.125 Mg Tablet) 18.75 mg PO NOW ONE Stop: 07/07/24 10:13 Last Admin: 07/07/24 10:41 Dose: Not Given Documented By: DOUG Carvedilol (Carvedilol 12.5 Mg Tablet) 18.75 mg PO NOW ONE Stop: 07/07/24 10:46 Last Admin: 07/07/24 10:38 Dose: 18.75 mg Documented By: DOUG Furosemide (Furosemide 40 Mg/4 Ml Vial) 40 mg IV NOW ONE Stop: 07/06/24 21:41 Last Admin: 07/06/24 23:12 Dose: 40 mg Documented By: WADE Furosemide (Furosemide 40 Mg/4 Ml Vial) 40 mg IV NOW ONE Stop: 07/07/24 08:12 Last Admin: 07/07/24 08:39 Dose: 40 mg Documented By: DOUG Heparin Sodium (Porcine) (Heparin 5,000 Unit/Ml Vial) 4,000 unit 60 unit/kg (4000 unit) IV NOW ONE Stop: 07/06/24 23:52 Last Admin: 07/07/24 00:00 Dose: 4,000 unit Documented By: VAHID Nitroglycerin (Nitroglycerin) 50 mg in 250 mls @ 1.5 mls/hr IV TITRATE ALEA; Protocol Last Titration: 07/07/24 14:14 Dose: Infused Documented By: Titration: 07/07/24 06:59 Dose: 15 mcg/min, 4.5 mls/hr Documented By: Titration: 07/07/24 06:25 Dose: 25 mcg/min, 7.5 mls/hr Documented By: Titration: 07/07/24 05:50 Dose: 35 mcg/min, 10.5 mls/hr Documented By: Titration: 07/06/24 23:41 Dose: 45 mcg/min, 13.5 mls/hr Documented By: Titration: 07/06/24 23:27 Dose: 35 mcg/min, 10.5 mls/hr Documented By: Titration: 07/06/24 23:13 Dose: 25 mcg/min, 7.5 mls/hr Documented By: Titration: 07/06/24 23:06 Dose: 15 mcg/min, 4.5 mls/hr Documented By: Titration: 07/06/24 22:54 Dose: 10 mcg/min, 3 mls/hr Documented By: Admin: 07/06/24 22:45 Dose: 5 mcg/min, 1.5 mls/hr Documented By: WADE Heparin Sodium/Dextrose (Heparin Drip) 25,000 unit in 500 mls @ 16.874 mls/hr IV CONT ALEA; Protocol Last Titration: 07/07/24 14:15 Dose: 10 units/kg/hr, 14.061 mls/hr Documented By: DOUG Co-signed By: CHETAN Titration: 07/07/24 06:58 Dose: 10 units/kg/hr, 14.061 mls/hr Documented By: Co-signed By: GEOVANNI Titration: 07/07/24 06:30 Dose: 0 units/kg/hr, 0 mls/hr Documented By: Co-signed By: GEOVANNI Admin: 07/07/24 00:02 Dose: 12 units/kg/hr, 16.874 mls/hr Documented By: VAHID Co-signed By: Losartan Potassium (Losartan 25 Mg Tablet) 25 mg PO NOW ONE Stop: 07/07/24 10:13 Last Admin: 07/07/24 10:38 Dose: 25 mg Documented By: DOUG Morphine Sulfate (Morphine 4 Mg/Ml Inj) 4 mg IV NOW ONE Stop: 07/06/24 20:52 Last Admin: 07/06/24 21:08 Dose: 4 mg Documented By: WADE Morphine Sulfate (Morphine 4 Mg/Ml Inj) 4 mg IV NOW ONE Stop: 07/06/24 23:52 Last Admin: 07/06/24 23:58 Dose: 4 mg Documented By: VAHID Nitroglycerin (Nitroglycerin 0.4 Mg Sl Tab) 0.4 mg SL NOW ONE Stop: 07/06/24 20:51 Last Admin: 07/06/24 20:57 Dose: 0.4 mg Documented By: WADE Nitroglycerin (Nitroglycerin 0.4 Mg Patch) 0.4 mg TOP 0700 [facility] Nitroglycerin (Nitroglycerin Oint 1 Inch/Gm Oint...G.) 1 inch TOP NOW ONE Stop: 07/06/24 21:50 Last Admin: 07/06/24 21:55 Dose: Not Given Documented By: WADE Vital Signs Vital signs: Vital Signs - 8 hr 07/07/24 08:00 07/07/24 08:00 07/07/24 08:30 Temperature Pulse Rate 78 Respiratory Rate 15 Blood Pressure 179/84 H 191/86 H Pulse Oximetry 94 Oxygen Delivery Method 07/07/24 08:30 07/07/24 08:33 07/07/24 09:00 Temperature 98.7 F Pulse Rate 78 85 Respiratory Rate 17 20 Blood Pressure Pulse Oximetry 94 92 Oxygen Delivery Method 07/07/24 09:00 07/07/24 09:30 07/07/24 09:30 Temperature Pulse Rate 78 Respiratory Rate 22 Blood Pressure 188/86 H 184/84 H Pulse Oximetry 93 Oxygen Delivery Method 07/07/24 10:00 07/07/24 10:00 07/07/24 10:30 Temperature Pulse Rate 87 Respiratory Rate 12 Blood Pressure 190/88 H 175/83 H Pulse Oximetry 91 Oxygen Delivery Method 07/07/24 10:30 07/07/24 10:38 07/07/24 10:38 Temperature Pulse Rate 78 77 77 Respiratory Rate 12 Blood Pressure 175/83 H 175/89 H Pulse Oximetry 93 Oxygen Delivery Method 07/07/24 11:00 07/07/24 11:00 07/07/24 11:30 Temperature Pulse Rate 77 Respiratory Rate 14 Blood Pressure 170/81 H 165/77 H Pulse Oximetry 94 Oxygen Delivery Method 07/07/24 11:30 07/07/24 12:00 07/07/24 12:00 Temperature Pulse Rate 71 72 Respiratory Rate 13 17 Blood Pressure 173/77 H Pulse Oximetry 95 95 Oxygen Delivery Method Room Air 07/07/24 12:30 07/07/24 12:30 07/07/24 13:00 Temperature Pulse Rate 67 Respiratory Rate 13 Blood Pressure 150/71 H 160/74 H Pulse Oximetry 91 Oxygen Delivery Method 07/07/24 13:00 07/07/24 13:30 07/07/24 14:00 Temperature Pulse Rate 65 68 71 Respiratory Rate 13 15 21 Blood Pressure Pulse Oximetry 92 93 93 Oxygen Delivery Method 07/07/24 14:01 07/07/24 14:01 Temperature Pulse Rate 72 Respiratory Rate 27 H Blood Pressure 165/77 H Pulse Oximetry 92 Oxygen Delivery Method MDM - Chest Pain <Behzad Serrato MD - Last Filed: 07/07/24 15:50> Lab Data Attestation: I reviewed the patient's lab results. 07/07/24 05:50 07/07/24 05:50 Labs: Lab Results 07/06/24 07/06/24 07/07/24 Range/Units 20:05 21:19 00:40 WBC 9.6 (4.5-11.0) X10^3/uL RBC 3.20 L (4.5-5.9) X10^6/uL Hgb 9.1 L (13.5-17.5) g/dL Hct 27.1 L (41-53) % MCV 84.8 (80-100) fL MCH 28.5 (26-34) PG MCHC 33.6 (30-36) % RDW 15.4 H (11.6-14.8) % Plt Count 284 (150-400) X10^3/uL Neut % (Auto) 79.3 H (50-75) % Lymph % (Auto) 11.0 L (25-40) % Mccreary % (Auto) 6.6 (3-14) % Eos % (Auto) 2.1 (2-4) % Baso % (Auto) 1.0 (0-2) % Neut # (Auto) 7600 H (5751-6020) /uL Lymph # (Auto) 1100 (9470-5593) /uL Mccreary # (Auto) 600 (0-900) /uL Eos # (Auto) 200 (0-450) /uL Baso # (Auto) 100 (0-100) /uL PT 10.8 (9.4-12.5) SECONDS INR 0.9 (0.9-1.3) APTT 40 H (25.1-36.5) SECONDS Sodium 137 (137-145) mmol/L Potassium 4.7 (3.4-5.1) mmol/L Chloride 107 (98-107) mmol/L Carbon Dioxide 22 (22-32) mmol/L BUN 43 H (9-20) mg/dL Creatinine 5.52 H (0.66-1.25) mg/dL Estimated GFR 10 L (>60) mL/min BUN/Creatinine Ratio 7.8 (6-22) Glucose 183 H (80-110) mg/dL Calcium 8.7 (8.4-10.2) mg/dL Magnesium 2.3 (1.6-2.3) mg/dL Total Bilirubin 0.4 (0.2-1.3) mg/dL AST 19 (17-59) IU/L ALT 26 (<50) IU/L Alkaline Phosphatase 124 (38-126) U/L Total Creatine Kinase 59 (55-170) U/L Troponin I < 0.012 < 0.012 (0.01-0.034) ng/mL NT-Pro-B Natriuret Pep 5210 H (<450) pg/mL Total Protein 6.6 (6.3-8.2) g/dL Albumin 3.6 (3.5-5.0) g/dL Globulin 3.0 (1.7-4.1) g/dL Albumin/Globulin Ratio 1.2 (1.0-2.8) Lipase 108 (23-300) U/L Chlamy pneumoniae PCR Not detected (Not Detect) Adenovirus (PCR) Not detected (Not Detect) B.parapertussis DNA PCR Not detected (Not Detecte) Coronavirus OC43 (PCR) Not detected (Not Detect) Coronavirus HKU1 (PCR) Not detected (Not Detect) Coronavirus 229E (PCR) Not detected (Not Detect) SARS-CoV-2 (PCR) Detected H (Not Detecte) Coronavirus NL63 (PCR) Not detected (Not Detect) Human Metapneumovir PCR Not detected (Not Detect) Influenza A (H3) PCR (Not Detect) Influenza Type A (PCR) Not detected (Not Detect) Influenza Type B (PCR) Not detected (Not Detect) M. pneumoniae (PCR) Not detected (Not Detect) Parainfluenza 1 (PCR) Not detected (Not Detect) Parainfluenza 2 (PCR) Not detected (Not Detect) Parainfluenza 3 (PCR) Not detected (Not Detect) Parainfluenza 4 (PCR) Not detected (Not Detect) RSV (PCR) Not detected (Not Detect) Entero/Rhino (PCR) Not detected (Not Detect) 07/07/24 07/07/24 Range/Units 05:50 13:17 WBC (4.5-11.0) X10^3/uL RBC (4.5-5.9) X10^6/uL Hgb 8.5 L (13.5-17.5) g/dL Hct 25.0 L (41-53) % MCV (80-100) fL MCH (26-34) PG MCHC (30-36) % RDW (11.6-14.8) % Plt Count 276 (150-400) X10^3/uL Neut % (Auto) (50-75) % Lymph % (Auto) (25-40) % Mccreary % (Auto) (3-14) % Eos % (Auto) (2-4) % Baso % (Auto) (0-2) % Neut # (Auto) (8496-9057) /uL Lymph # (Auto) (7014-0600) /uL Mccreary # (Auto) (0-900) /uL Eos # (Auto) (0-450) /uL Baso # (Auto) (0-100) /uL PT (9.4-12.5) SECONDS INR (0.9-1.3) APTT 94 H* D 57 H D (25.1-36.5) SECONDS Sodium 136 L (137-145) mmol/L Potassium 4.5 (3.4-5.1) mmol/L Chloride 107 (98-107) mmol/L Carbon Dioxide 23 (22-32) mmol/L BUN 46 H (9-20) mg/dL Creatinine 5.50 H (0.66-1.25) mg/dL Estimated GFR 10 L (>60) mL/min BUN/Creatinine Ratio 8.4 (6-22) Glucose 157 H (80-110) mg/dL Calcium 8.5 (8.4-10.2) mg/dL Magnesium (1.6-2.3) mg/dL Total Bilirubin (0.2-1.3) mg/dL AST (17-59) IU/L ALT (<50) IU/L Alkaline Phosphatase (38-126) U/L Total Creatine Kinase (55-170) U/L Troponin I < 0.012 (0.01-0.034) ng/mL NT-Pro-B Natriuret Pep (<450) pg/mL Total Protein (6.3-8.2) g/dL Albumin (3.5-5.0) g/dL Globulin (1.7-4.1) g/dL Albumin/Globulin Ratio (1.0-2.8) Lipase (23-300) U/L Chlamy pneumoniae PCR (Not Detect) Adenovirus (PCR) (Not Detect) B.parapertussis DNA PCR (Not Detecte) Coronavirus OC43 (PCR) (Not Detect) Coronavirus HKU1 (PCR) (Not Detect) Coronavirus 229E (PCR) (Not Detect) SARS-CoV-2 (PCR) (Not Detecte) Coronavirus NL63 (PCR) (Not Detect) Human Metapneumovir PCR (Not Detect) Influenza A (H3) PCR (Not Detect) Influenza Type A (PCR) (Not Detect) Influenza Type B (PCR) (Not Detect) M. pneumoniae (PCR) (Not Detect) Parainfluenza 1 (PCR) (Not Detect) Parainfluenza 2 (PCR) (Not Detect) Parainfluenza 3 (PCR) (Not Detect) Parainfluenza 4 (PCR) (Not Detect) RSV (PCR) (Not Detect) Entero/Rhino (PCR) (Not Detect) Imaging Data Chest x-ray: Radiologist's Impression: [address] [address] XRay Report Signed Patient: Bob Martin MR#: [id number] : 1940 Acct:[id number] Age/Sex: 84 / M Date of Service: 07/06/24 Loc: ED Accession Number: [id number] Procedure: XR chest 1V Ordering Provider: Behzad Serrato MD PROCEDURE: XR CHEST 1V INDICATIONS: chest pain TECHNIQUE: One view of the chest was acquired. COMPARISON: [facility], , XR CHEST 1V, 12/22/2023, 23:23. FINDINGS: Surgical changes and devices: Post median sternotomy and CABG. Cardiac clip. Lungs and pleura: Blunting of the costophrenic angles. Suspect trace pleural effusions. No pneumothorax. Prominent pulmonary markings. Mediastinum: Mediastinal contours appear normal. Heart size is enlarged. Bones and chest wall: No suspicious bony lesions. Overlying soft tissues appear unremarkable. IMPRESSION: Small bilateral pleural effusions. Pulmonary vasculature engorgement or mild fluid overload/CHF. Cardiomegaly. Dictated by: Celso Pavon M.D. on 07/06/2024 at 20:46 Approved by: Celso Pavon M.D. on 07/06/2024 at 20:49 ECG Data Attestation: I personally reviewed and interpreted this ECG as follows: Interpretation: 07/06/242006. Normal sinus rhythm with rate of 69, no obvious ST segment elevation or depression changes, some motion artifact however noted. KY 208 prolonged, QRS 78, QTC 460. 07/07/24, 0103. Normal sinus rhythm with a rate of 67, no obvious ST segment elevation or depression changes. No significant change from prior EKG this visit. Intervals KY 202, QRS 102, QTC 481. MDM Narrative Medical decision making narrative: 84-year-old male with history of chronic kidney disease, known coronary artery disease, CABG x4 vessels 2020 [facility], more recently had mitral valve clip procedure [facility] 05/25/2024, now with a few hours duration of left anterior and right anterior chest pain, partially responsive to SL-Ntg x2 doses by EMS along with fentanyl. Still having chest pain. Screening EKG without obvious ischemic changes. Labs pending. Will give additional SL-Ntg third dose and IV morphine. Chest x-ray shows fluid overload changes. BNP 5210 elevated. Creatinine 5.5 elevated, increased from 2.9-3.0 range since Nov 2023. COVID positive noted, respiratory panel pathogens otherwise negative. Patient/family informed. 2240, awaiting call back from [facility] to coordinate Cardiology/Cardiothoracic/Nephrology services 2345, still having chest pain on nitroglycerin drip up, repeat IV morphine, add IV heparin for unstable angina. Waitlisted for transfer to [facility] where he had his recent 04/2024 mitral valve surgery and 2020 CABG x4 07/07/24, 0130, patient appears more comfortable, repeat interval EKG unchanged, repeat troponin negative, still waitlisted [facility] 0600, patient pain-free on heparin and nitroglycerin infusions, will get interval 3rd troponin, recheck BMP after IV Lasix diuresis. [facility] to update 0800 regarding their bed availability 0700, signed out to oncoming ED shift physician Dr. Katie wilson: Received turned over. Review patient's history and physical exam. Patient is now chest pain-free. Is on a nitro drip and a heparin drip. Is producing urine. Not requiring oxygen. Has an elevation in his creatinine in his BNP. He was given another dose of Lasix. Was given his daily home blood pressure medicines which improved his blood pressure as well. Discussed the case with Dr. Monsalve hospitalist on-call [facility] where the patient has received all of his cardiology care up to this point. Will transfer patient to [facility] for further evaluation and treatment. Patient is stable for transport. <Eloy Wilson, DO - Last Filed: 07/07/24 13:43> Lab Data Labs: Lab Results 07/06/24 07/06/24 07/07/24 Range/Units 20:05 21:19 00:40 WBC 9.6 (4.5-11.0) X10^3/uL RBC 3.20 L (4.5-5.9) X10^6/uL Hgb 9.1 L (13.5-17.5) g/dL Hct 27.1 L (41-53) % MCV 84.8 (80-100) fL MCH 28.5 (26-34) PG MCHC 33.6 (30-36) % RDW 15.4 H (11.6-14.8) % Plt Count 284 (150-400) X10^3/uL Neut % (Auto) 79.3 H (50-75) % Lymph % (Auto) 11.0 L (25-40) % Mccreary % (Auto) 6.6 (3-14) % Eos % (Auto) 2.1 (2-4) % Baso % (Auto) 1.0 (0-2) % Neut # (Auto) 7600 H (8237-4355) /uL Lymph # (Auto) 1100 (1936-8441) /uL Mccreary # (Auto) 600 (0-900) /uL Eos # (Auto) 200 (0-450) /uL Baso # (Auto) 100 (0-100) /uL PT 10.8 (9.4-12.5) SECONDS INR 0.9 (0.9-1.3) APTT 40 H (25.1-36.5) SECONDS Sodium 137 (137-145) mmol/L Potassium 4.7 (3.4-5.1) mmol/L Chloride 107 (98-107) mmol/L Carbon Dioxide 22 (22-32) mmol/L BUN 43 H (9-20) mg/dL Creatinine 5.52 H (0.66-1.25) mg/dL Estimated GFR 10 L (>60) mL/min BUN/Creatinine Ratio 7.8 (6-22) Glucose 183 H (80-110) mg/dL Calcium 8.7 (8.4-10.2) mg/dL Magnesium 2.3 (1.6-2.3) mg/dL Total Bilirubin 0.4 (0.2-1.3) mg/dL AST 19 (17-59) IU/L ALT 26 (<50) IU/L Alkaline Phosphatase 124 (38-126) U/L Total Creatine Kinase 59 (55-170) U/L Troponin I < 0.012 < 0.012 (0.01-0.034) ng/mL NT-Pro-B Natriuret Pep 5210 H (<450) pg/mL Total Protein 6.6 (6.3-8.2) g/dL Albumin 3.6 (3.5-5.0) g/dL Globulin 3.0 (1.7-4.1) g/dL Albumin/Globulin Ratio 1.2 (1.0-2.8) Lipase 108 (23-300) U/L Chlamy pneumoniae PCR Not detected (Not Detect) Adenovirus (PCR) Not detected (Not Detect) B.parapertussis DNA PCR Not detected (Not Detecte) Coronavirus OC43 (PCR) Not detected (Not Detect) Coronavirus HKU1 (PCR) Not detected (Not Detect) Coronavirus 229E (PCR) Not detected (Not Detect) SARS-CoV-2 (PCR) Detected H (Not Detecte) Coronavirus NL63 (PCR) Not detected (Not Detect) Human Metapneumovir PCR Not detected (Not Detect) Influenza A (H3) PCR (Not Detect) Influenza Type A (PCR) Not detected (Not Detect) Influenza Type B (PCR) Not detected (Not Detect) M. pneumoniae (PCR) Not detected (Not Detect) Parainfluenza 1 (PCR) Not detected (Not Detect) Parainfluenza 2 (PCR) Not detected (Not Detect) Parainfluenza 3 (PCR) Not detected (Not Detect) Parainfluenza 4 (PCR) Not detected (Not Detect) RSV (PCR) Not detected (Not Detect) Entero/Rhino (PCR) Not detected (Not Detect) 07/07/24 07/07/24 Range/Units 05:50 13:17 WBC (4.5-11.0) X10^3/uL RBC (4.5-5.9) X10^6/uL Hgb 8.5 L (13.5-17.5) g/dL Hct 25.0 L (41-53) % MCV (80-100) fL MCH (26-34) PG MCHC (30-36) % RDW (11.6-14.8) % Plt Count 276 (150-400) X10^3/uL Neut % (Auto) (50-75) % Lymph % (Auto) (25-40) % Mccreary % (Auto) (3-14) % Eos % (Auto) (2-4) % Baso % (Auto) (0-2) % Neut # (Auto) (5074-9759) /uL Lymph # (Auto) (3213-0073) /uL Mccreary # (Auto) (0-900) /uL Eos # (Auto) (0-450) /uL Baso # (Auto) (0-100) /uL PT (9.4-12.5) SECONDS INR (0.9-1.3) APTT 94 H* D 57 H D (25.1-36.5) SECONDS Sodium 136 L (137-145) mmol/L Potassium 4.5 (3.4-5.1) mmol/L Chloride 107 (98-107) mmol/L Carbon Dioxide 23 (22-32) mmol/L BUN 46 H (9-20) mg/dL Creatinine 5.50 H (0.66-1.25) mg/dL Estimated GFR 10 L (>60) mL/min BUN/Creatinine Ratio 8.4 (6-22) Glucose 157 H (80-110) mg/dL Calcium 8.5 (8.4-10.2) mg/dL Magnesium (1.6-2.3) mg/dL Total Bilirubin (0.2-1.3) mg/dL AST (17-59) IU/L ALT (<50) IU/L Alkaline Phosphatase (38-126) U/L Total Creatine Kinase (55-170) U/L Troponin I < 0.012 (0.01-0.034) ng/mL NT-Pro-B Natriuret Pep (<450) pg/mL Total Protein (6.3-8.2) g/dL Albumin (3.5-5.0) g/dL Globulin (1.7-4.1) g/dL Albumin/Globulin Ratio (1.0-2.8) Lipase (23-300) U/L Chlamy pneumoniae PCR (Not Detect) Adenovirus (PCR) (Not Detect) B.parapertussis DNA PCR (Not Detecte) Coronavirus OC43 (PCR) (Not Detect) Coronavirus HKU1 (PCR) (Not Detect) Coronavirus 229E (PCR) (Not Detect) SARS-CoV-2 (PCR) (Not Detecte) Coronavirus NL63 (PCR) (Not Detect) Human Metapneumovir PCR (Not Detect) Influenza A (H3) PCR (Not Detect) Influenza Type A (PCR) (Not Detect) Influenza Type B (PCR) (Not Detect) M. pneumoniae (PCR) (Not Detect) Parainfluenza 1 (PCR) (Not Detect) Parainfluenza 2 (PCR) (Not Detect) Parainfluenza 3 (PCR) (Not Detect) Parainfluenza 4 (PCR) (Not Detect) RSV (PCR) (Not Detect) Entero/Rhino (PCR) (Not Detect) MDM Narrative Medical decision making narrative: 84-year-old male with history of chronic kidney disease, known coronary artery disease, CABG x4 vessels 2020 [facility], more recently had mitral valve clip procedure [facility] 05/25/2024, now with a few hours duration of left anterior and right anterior chest pain, partially responsive to SL-Ntg x2 doses by EMS along with fentanyl. Still having chest pain. Screening EKG without obvious ischemic changes. Labs pending. Will give additional SL-Ntg third dose and IV morphine. Chest x-ray shows fluid overload changes. BNP 5210 elevated. Creatinine 5.1 elevated, further increased from 2.9-3.0 range since Nov 2023. COVID positive noted, respiratory panel pathogens otherwise negative. Patient/family informed. 2239, awaiting call back from [facility] to coordinate Cardiology/Cardiothoracic/Nephrology services 2344, still having chest pain on nitroglycerin drip up, repeat IV morphine, add IV heparin for unstable angina. Waitlisted for transfer to [facility] where he had his recent 04/2024 mitral valve surgery and 2020 CABG x4 07/07/24, 0130, patient appears more comfortable, repeat interval EKG unchanged, repeat troponin negative, still waitlisted [facility] 0600, patient pain-free on heparin and nitroglycerin infusions, will get interval 3rd troponin, recheck BMP after IV Lasix diuresis. [facility] to update 0800 regarding their bed availability 0700, signed out to oncoming ED shift physician Dr. Katie wilson: Received turned over. Review patient's history and physical exam. Patient is now chest pain-free. Is on a nitro drip and a heparin drip. Is producing urine. Not requiring oxygen. Has an elevation in his creatinine in his BNP. He was given another dose of Lasix. Was given his daily home blood pressure medicines which improved his blood pressure as well. Discussed the case with Dr. Monsalve hospitalist on-call [facility] where the patient has received all of his cardiology care up to this point. Will transfer patient to [facility] for further evaluation and treatment. Patient is stable for transport. Critical Care Time <Behzad Serrato MD - Last Filed: 07/07/24 15:50> Critical Care Time Critical Care Time: Yes Total Critical Care Time: 35 Attestation: The high probability of a clinically significant, sudden or life threatening deterioration of the [cardiopulmonary, renovascular] system(s) required my full and direct attention, intervention and personal management. The aggregate critical care time was [35] minutes. This time is in addition to time spent performing reported procedures but includes the following: [x] Data Review and interpretation [x] Patient assessment and monitoring of vital signs [x] Documentation [x] Medication orders and management Discharge Plan Departure Patient Disposition: [facility] Clinical Impression: Chest pain, COVID-19, Acute on chronic renal insufficiency, Fluid overload, Unstable angina pectoris, Hx of CABG Prescriptions: No Action atorvastatin 40 mg tablet 80 mg PO DAILY allopurinol 100 mg tablet 100 mg PO DAILY aspirin 81 mg tablet,delayed release (DR/EC) 81 mg PO DAILY losartan 50 mg tablet 25 mg PO DAILY carvedilol 25 mg tablet 18.75 mg PO BID insulin aspart U-100 [Novolog FlexPen U-100 Insulin] 100 unit/mL (3 mL) insulin pen 10 unit SUBCUT AC insulin glargine [Lantus Solostar U-100 Insulin] 100 unit/mL (3 mL) insulin pen 30 unit SUBCUT DAILY Patient Comments: QD IN THE MORNING. ezetimibe 10 mg tablet 10 mg PO DAILY potassium chloride 20 mEq tablet,ER particles/crystals 20 meq PO 3XD ergocalciferol (vitamin D2) 1,250 mcg (50,000 unit) capsule 1,250 mcg PO WEEKLY torsemide 20 mg Tablet 20 mg PO DAILY oxybutynin chloride 5 mg Tablet 5 mg PO BID Iron (ferrous sulfate) tablet 65 mg PO DAILY (DME) pen needle, diabetic [Sure Comfort Pen Needle] 32 gauge x 1/4 needle MISCELLANEOUS Patient Comments: [NO ORIGINAL SIG] amlodipine 10 mg tablet 10 mg PO DAILY 30 Days Qty: 30 0RF Referrals: Maverick Mora MD [Primary Care Provider] -
[2024-07-06 22:24] LABS: Adenovirus Not Detected (Not Detect); B. parapertussis Not Detected (Not Detecte); Bordetella pertussis Not Detected (Not Detect); Chlamydophila pneumoniae Not Detected (Not Detect); Coronavirus 229E Not Detected (Not Detect); Coronavirus HKU1 Not Detected (Not Detect); Coronavirus NL 63 Not Detected (Not Detect); Coronavirus OC43 Not Detected (Not Detect); Human Metapneumovirus Not Detected (Not Detect); Human Rhinovirus/Enterovirus Not Detected (Not Detect); Influenza A Not Detected (Not Detect); Influenza B Not Detected (Not Detect); Mycoplasma pneumoniae Not Detected (Not Detect); Parainfluenza Virus 1 Not Detected (Not Detect); Parainfluenza Virus 2 Not Detected (Not Detect); Parainfluenza Virus 3 Not Detected (Not Detect); Parainfluenza Virus 4 Not Detected (Not Detect); Respiratory Syncytial Virus Not Detected (Not Detect); SARS- CoV-2 Detected (Not Detecte)
[2024-07-06] MEDS: NITROGLYCERIN 50 MG/250 ML INFUS..BTL IV (22:45)
[2024-07-06] MEDS: FUROSEMIDE 40 MG/4 ML VIAL IV (23:12)
--- NOTE | 2024-07-06 23:52 | EKG_ITS ---
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
--- NOTE | 2024-07-06 23:52 | PC.NURSE ---
ZANJERO note: Spoke to Kim at [facility] at 2230, she said they were tight on beds for telemetry. She asked for images to be pushed over on patient. Pushed images. Followed up at 2351 with Kim, who said the staffing got worse at 2300. Updated Kim on what was going with patient, confirmed patient in on their waitlist. Kim told me to contact [facility] at 0800 to check with them. I thanked her and updated Dr. Serrato.
[2024-07-07] VITALS (52 sets, daily range): BP systolic 144–191; BP diastolic 67–89; PULSE 63–87; RESP 12–29; TEMP 37.1; O2SAT 91–96
[2024-07-07] MEDS: HEPARIN 5,000 UNIT/ML VIAL 4000 UNIT IV
[2024-07-07] MEDS: HEPARIN DRIP 25,000 UNIT/500 ML IV.SOLN 16.874 UNIT IV (00:02)
[2024-07-07 01:20] LABS: Troponin I < 0.012 ng/mL (0.01-0.034)
--- NOTE | 2024-07-07 01:56 | PC.NURSE ---
[employer] TEND[employer] note: Carmen Tay, daughter: [phone] Shy Martin, : [phone] these are the best contact numbers
[2024-07-07 06:04] LABS: Hemoglobin 8.5 g/dL (13.5-17.5); Platelet Count 276 X10^3/uL (150-400)
[2024-07-07 06:25] LABS: PTT Partial Thromboplastin Tim 94 SECONDS (25.1-36.5)
[2024-07-07 06:34] LABS: BUN Creatinine Ratio 8.4 (6-22); Blood Urea Nitrogen 46 mg/dL (9-20); Calcium 8.5 mg/dL (8.4-10.2); Carbon Dioxide 23 mmol/L (22-32); Chloride 107 mmol/L (98-107); Estimated Glomerular Filt Rate 10 mL/min (>60); Glucose 157 mg/dL (80-110); HEMOLYSIS < 15 (0-50); Potassium 4.5 mmol/L (3.4-5.1); Sodium 136 mmol/L (137-145)
[2024-07-07 06:46] LABS: Troponin I < 0.012 ng/mL (0.01-0.034)
--- NOTE | 2024-07-07 07:29 | PC.NURSE ---
Assumed care of patient 0700. Pt A&Ox4 and denies cp or sob at this time.
[2024-07-07] MEDS: FUROSEMIDE 40 MG/4 ML VIAL IV (08:39)
[2024-07-07] MEDS: LOSARTAN 25 MG TABLET PO (10:38)
[2024-07-07] MEDS: carvediloL 12.5 MG TABLET 18.75 MG PO (10:38)
[2024-07-07] MEDS: AMLODIPINE 5 MG TABLET 10 MG PO (10:38)
--- NOTE | 2024-07-07 11:48 | PC.NURSE ---
Called [facility] at 1130 for an update on patient transfer, patient is accepted but waiting for a bed assignment. [facility] will call when bed assignment is available.
--- NOTE | 2024-07-07 12:20 | PC.NURSE ---
Pt denies cp & sob. at bedside. A&Ox4.
[2024-07-07 13:39] LABS: PTT Partial Thromboplastin Tim 57 SECONDS (25.1-36.5)
== END 2024-07-07 14:19 | disposition short-term general hospital (02) ==
PROVIDERS: Emergency Medicine; Emergency Provider Emergency Medicine; PCP Family Medicine
DX: U07.1 COVID-19 (principal); I20.0 Unstable angina; R07.9 Chest pain, unspecified; E87.70 Fluid overload, unspecified; R06.02 Shortness of breath; N28.9 Disorder of kidney and ureter, unspecified; Z79.899 Other long term (current) drug therapy; Z95.1 Presence of aortocoronary bypass graft
CPT/HCPCS: 36415; 71045; 80048; 80053; 82550; 83690; 83735; 83880; 84484; 85014; 85018; 85025; 85049; 85610; 85730; 87633; 93005; 93010; 96365; 96366; 96368; 96375; 96376; 99284; J1644; J1940; J2270

== ENCOUNTER → 2024-10-28 11:44 | Outpatient (CLI) | payer MEDICARE, OTHER, SELFPAY ==
[2023-12-23 01:45] VITALS: BMI 23.5
--- NOTE | 2024-10-28 | DI.ECHO.S_ITS ---
[facility]---------+ [facility] : : [address] : : [place] : : [id number] : : Phone: [phone] Echocardiogram Report + + :Name: NITA BHAKTA Study Date: 10/28/2024 Height: 68 in : :[facility] ReadingLocation: Weight: 145 lb : : Gender: Male BSA: 1.8 m2 : :: 1940 Age: 84 yrs BP: 143/58 mmHg: :Reason For Study: MITRAL VALVE INSUFFICIENCY : :Ordering Physician: HALEY, : :KANU Salazar Performed By: Fabian Pacheco : :Referring: KANU DE LEON : + + Interpretation Summary Left ventricular wall thickness is mildly increased. The ejection fraction is estimated to be 60-65%. Diastolic function could not be accurately assessed due to confounding valvular disease. The left atrium is moderately dilated. The right ventricle is normal size. Right ventricular systolic function is mildly reduced. The right atrium is mildly dilated. A mitral valve clip is present. There is mild to moderate mitral regurgitation. There is mild tricuspid regurgitation. Pulmonary artery pressures cannot be estimated because of the lack of a measurable TR jet velocity but the IVC suggests a CVP of around 3 mmHg. Compared to the prior study dated 12/23/2023, the left ventricle is less dynamic, the right ventricular size has normalized however systolic function is mildly reduced, mitral regurgitation has decreased in the presence of a new MitraClip and the tricuspid regurgitation is decreased. Procedure: A two-dimensional transthoracic echocardiogram with color flow and Doppler was performed. The study quality was technically good. Comparison is made with the echocardiogram of 12/23/2023. The patient was in normal sinus rhythm during the exam. Left Ventricle: The left ventricle is normal in size. Left ventricular wall thickness is mildly increased. There is no ventricular septal defect visualized. The ejection fraction is estimated to be 60-65%. Diastolic function could not be accurately assessed due to confounding valvular disease. Right Ventricle: The right ventricle is normal size. Right ventricular systolic function is mildly reduced. Atria: The left atrium is moderately dilated. The right atrium is mildly dilated. There is no Doppler evidence for an atrial septal defect. Mitral Valve: The mitral valve leaflets are mildly calcified. A mitral valve clip is present. There is mild to moderate mitral regurgitation. Aortic Valve: The aortic valve is trileaflet. The aortic valve opens well. The aortic valve is mildly calcified. There is no aortic valve stenosis. No aortic regurgitation is present. Tricuspid Valve: The tricuspid valve is normal. There is mild tricuspid regurgitation. Pulmonary artery pressures cannot be estimated because of the lack of a measurable TR jet velocity but the IVC suggests a CVP of around 3 mmHg. Pulmonic Valve: The pulmonic valve is normal in structure and function. There is trace pulmonic regurgitation. Great Vessels: The aortic root is normal size. The dimensions of the ascending aorta are normal. The pulmonary artery is normal size. The IVC is of normal diameter and collapses greater than 50% with a sniff. This suggests a low right atrial pressure of 3 mm Hg. Pericardium/ Pleura There is no pericardial effusion. There is no pleural effusion. MMode/2D Measurements & Calculations LVIDd: 5.1 cm LVOT diam: 2.0 cm LVIDs: 3.2 cm Ao root diam: 3.2 cm FS: 37.4 % asc Aorta Diam: 3.2 cm EPSS: 0.55 cm IVSd: 1.3 cm LVPWd: 1.1 cm LV negron. diameter/BSA (cm/m^2): 2.9 LV sys. diameter/BSA (cm/m^2): 1.8 LA A2 area: 22.1 cm2 RA long axis: 5.2 cm LA A4 area: 22.3 cm2 RA area: 14.0 cm2 LA length (vol): 5.4 cm RA vol: 32.4 ml LA vol: 76.8 ml RA : 18.2 ml/m2 LA vol index: 43.1 ml/m2 IVC diam: 1.5 cm RVD1 (basal): 3.5 cm RVD2 (mid): 2.8 cm TAPSE: 1.4 cm Doppler Measurements & Calculations Ao V2 max: 133.7 cm/sec LVOT Max Adrián: 106.2 cm/sec Ao V2 mean: 93.8 cm/sec LV V1 max P.5 mmHg Ao max P.2 mmHg LV V1 VTI: 24.2 cm Ao mean P.9 mmHg LAUREN(I,D): 2.4 cm2 Ao V2 VTI: 30.7 cm LAUREN(V,D): 2.4 cm2 sev ratio: 0.79 LAUREN indexed to BSA (cm^2/m^2): 1.3 MV E max adrián: 71.1 cm/sec TR max adrián: 260.3 cm/sec MV A max adrián: 103.4 cm/sec TR max P.2 mmHg MV E/A: 0.69 PA V2 max: 70.5 cm/sec Med Peak E' Adrián: 4.2 cm/sec PA V2 mean: 46.3 cm/sec E/E' med: 17.0 PA mean P.97 mmHg Lat Peak E' Adrián: 6.1 cm/sec PA pr(Accel): 41.3 mmHg E/E' lat: 11.7 E/e' average: 14.4 MV dec time: 0.26 sec SV(LVOT): 73.4 ml Reading Physician:01:18 PM
== END ==
PROVIDERS: PCP Internal Medicine; Referring Provider Nurse Practitioner; Visit Provider Nurse Practitioner
DX: I08.1 Rheumatic disorders of both mitral and tricuspid valves (principal)
CPT/HCPCS: 93306

== ENCOUNTER → 2025-04-28 09:04 | Outpatient (CLI) | payer OTHER, SELFPAY ==
[2023-12-23 01:45] VITALS: BMI 23.5
[2025-04-28 10:52] LABS: Alanine Aminotransferase 29 IU/L (<50); Albumin 4.5 g/dL (3.5-5.0); Albumin Globulin Ratio 1.1 (1.0-2.8); Alkaline Phosphatase 122 U/L (38-126); Aspartate Aminotransferase 28 IU/L (17-59); BUN Creatinine Ratio 6.2 (6-22); Bilirubin Total 0.7 mg/dL (0.2-1.3); Blood Urea Nitrogen 27 mg/dL (9-20); Calcium 9.4 mg/dL (8.4-10.2); Carbon Dioxide 27 mmol/L (22-32); Chloride 95 mmol/L (98-107); Estimated Glomerular Filt Rate 13 mL/min (>60); Globulin 4.2 g/dL (1.7-4.1); Glucose 74 mg/dL (70-99); HEMOLYSIS < 15 (0-50); Potassium 4.3 mmol/L (3.4-5.1); Sodium 136 mmol/L (137-145); Total Protein 8.7 g/dL (6.3-8.2)
[2025-04-28 12:18] LABS: Creatinine Urine Random 81.56 mg/dL
[2025-04-28 12:29] LABS: Appearance Urine UA CLEAR; Bilirubin Urine UA NEGATIVE (NEGATIVE); Color Urine UA YELLOW; Glucose Urine UA NEGATIVE (Negative); Ketones Urine UA NEGATIVE (NEGATIVE); Leukocyte Esterase Urine UA NEGATIVE (NEGATIVE); Nitrite Urine UA NEGATIVE (Negative); Occult Blood Urine UA 1+ (Negative); Protein Urine UA 3+ (Negative); Urobilinogen Urine UA 0.2 E.U./dL (0.2)
[2025-04-28 12:41] LABS: Bacteria Urine Occasional (0-1); Culture Indicated Urine Cult Not Indicated; RBC Urine 0-1/HPF (0-5/HPF); Squamous Epithelial Cell Urine 0-1 /HPF (0-5/HPF); Urine Volume 10mL (spun); WBC Urine 0-1/HPF (0-5/HPF)
[2025-04-28 15:47] LABS: Microalbumin Urine Random > 114.0 mg/dL (0-1.6)
== END ==
PROVIDERS: PCP Internal Medicine; Referring Provider Chiropractor; Visit Provider Chiropractor
DX: N18.9 Chronic kidney disease, unspecified (principal)
CPT/HCPCS: 36415; 80053; 81001; 82043; 82570